=== PATIENT | male | born 1960 | race Caucasian/White ===

== ENCOUNTER → 2018-01-27 15:36 | Outpatient (CLI) | payer BC, SELFPAY ==
[2018-01-27 17:30] LABS: Absolute Lymphocyte Count 1.73 X10^3/ul (0.83-4.51); Absolute Neutrophil Count 3.8 X10^3/uL (2.0-7.7); Basophil# 0.06 X10^3/uL; Basophil% 0.9 % (0-1); Eosinophil# 0.14 X10^3/uL; Eosinophils% 2.1 % (0-5); Hematocrit 44.8 % (40-54); Hemoglobin 15.2 g/dl (13.0-16.5); Lymphocyte # 1.73 X10^3/ul (4.0); Mean Corp Hgb Conc 33.9 g/gl (32-36); Mean Corpuscular Hgb 32.5 pg (27.0-32.0); Mean Corpuscular Volume 95.7 fL (80-94); Mean Platelet Vol. 11.4 fl (6.2-12.0); Monocyte# 0.91 X10^3/uL; Monocyte% 13.7 % (0-10); Neutrophil # 3.81 X10^3/uL (2.7-7.7); Neutrophil % 57.1 % (47-70); Platelet Count 178 K/mm3 (150-450); RBC Distribution Width CV 13.1 % (11.6-14.6); RBC Distribution Width SD 45.6 fl (35.1-43.9); Red Blood Count 4.68 M/mm3 (4.6-6.2); White Blood Count 6.7 K/mm3 (4.4-11.0)
[2018-01-27 17:32] LABS: POSITIVE COUNT NO; POSITIVE DIFFERENTIAL NO; POSITIVE MORPHOLOGY NO
[2018-01-27 18:02] LABS: ALB/GLOB Ratio 1.3 RATIO (0.9-2.4); AST(SGOT) 18 U/L (15-37); Alanine Aminotransfer ALT/SGPT 29 U/L (16-61); Albumin, Serum 3.8 g/dL (3.2-5.0); Alkaline Phosphatase 78 U/L (45-117); Anion Gap 6 (5-15); BUN 14 mg/dL (7-18); BUN/Creat Ratio 19.2 RATIO (10-20); Calcium,Total 9.1 mg/dL (8.5-10.1); Chloride 108 mmol/L (98-107); Creatinine, Serum 0.73 mg/dL (0.70-1.30); EST Glomerular Filtration Rate 117 mL/min (>60); Est Glom Filt Rate - Afr Amer 142 mL/min (>60); Glucose 91 mg/dL (74-106); Potassium 4.1 mmol/L (3.5-5.1); Protein, Total 6.8 g/dL (6.4-8.2); Sodium Level 143 mmol/L (136-145)
== END ==
PROVIDERS: Family Provider Family Medicine; PCP Family Medicine; Visit Provider Family Medicine
DX: R13.10 Dysphagia, unspecified (principal)
CPT/HCPCS: 36415; 80053; 85025

== ENCOUNTER → 2018-02-05 16:49 | Outpatient (CLI) | payer BC, SELFPAY | PROVIDERS: Family Provider Family Medicine; PCP Family Medicine; Referring Provider Family Medicine; Visit Provider Family Medicine | DX: R19.7 Diarrhea, unspecified (principal) | CPT/HCPCS: 87493 ==

== ENCOUNTER 2018-02-06 09:55 | Day surgery (SDC) | payer BC, SELFPAY ==
[2018-02-06] VITALS (7 sets, daily range): BP systolic 96–130; BP diastolic 73–116; PULSE 62–77; RESP 16–18; TEMP 36.3–36.7; O2SAT 96–100; BMI 19.8
--- NOTE | 2018-02-06 | GASB_PTH ---
PATIENT: RONI ROYAL LOC: EN U#:[id number] AGE/SX: 57/M ROOM: RE02/06/[address]: Dr. Jose Escamilla MD : 1960 BED: DIS: 02/06/2018 SPEC #: [id number] RECD: 02/06/18 15:10 STATUS: JESSEE WENDY #: [id number] HEATHER: 02/06/18 00:[address]: Jose Escamilla DEPT: SURGICAL PATHOLOGY RECD BY: Russell Dubois ENTERED: 02/06/18 15:11 SP TYPE: Gastric Bx OTHR DR: Dr. Cristobal Diaz MD Tissues: A - Gastric mucous membrane B - Gastric mucous membrane C - Esophageal mucous membrane D - Rectum, NOS Procedures: Surgery Specimen Level IV HEADER OPERATION: Colonoscopy, EGD ([facility] [place]) PRE-OP DIAGNOSIS: Weight loss, nonintentional esophageal dysphagia; epigastric pain TISSUE SUBMITTED: A - Biopsy gastric antrum, H. pylori and path, B - Biopsy of gastric polyp, C - Distal esophageal, D - Biopsy polyp rectum MICROSCOPIC DIAGNOSIS A. Gastric antrum, biopsy: Chronic active gastritis. B. Gastric polyp, biopsy: Fundic gland polyp. C. Distal esophageal biopsy: Fragments of squamous epithelium with chronic inflammation. D. Polyp rectum, biopsy: Fragments of colonic mucosa with focal hyperplastic changes. SJ:michelle 02/09/18 COMMENT A. The results of immunohistochemistry for Helicobacter pylori will be reported separately ([id number]). MICROSCOPIC DESCRIPTION Slides are reviewed. GROSS DESCRIPTION A - Received in fixative is one container labeled with the patient's name and designated biopsy gastric antrum. The specimen consists of one irregular fragment of light de la garza soft tissue that measures 0.5 x 0.2 x 0.1 cm. The specimen is totally submitted in one cassette. B - Received in fixative is one container labeled with the patient's name and designated gastric polyp. The specimen consists of one irregular fragment of light de [place] garza soft tissue that measures 0.3 x 0.3 x 0.1 cm. The specimen is totally submitted in one cassette. C - Received in fixative is one container labeled with the patient's name and designated distal esophageal biopsy. The specimen consists of multiple irregular fragments of light de [place] garza soft tissue that in aggregate measure 1 x 0.2 x 0.1 cm. The specimen is totally submitted in one cassette. D - Received in fixative is one container labeled with the patient's name and designated biopsy polyp rectum. The specimen consists of multiple irregular fragments of light de [place] garza soft tissue that in aggregate measure 1.5 x 0.3 x 0.1 cm. The specimen is totally submitted in one cassette. / SJ:rg 02/06/18 TC:3 CPT: 00093 x4
--- NOTE | 2018-02-06 | IMM_PTH ---
PATIENT: RONI ROYAL LOC: EN U#:[id number] AGE/SX: 57/M ROOM: RE02/06/[address]: Dr. Jose Escamilla MD : 1960 BED: DIS: 02/06/2018 SPEC #: [id number] RECD: 02/06/18 15:26 STATUS: JESSEE RECierra #: [id number] HEATHER: 02/06/18 00:[address]: Jose Escamilla DEPT: IMMUNOHISTOCHEMISTRY RECD BY: Rosette Mueller ENTERED: 02/06/18 15:27 SP TYPE: IMMUNO OTHR DR: Dr. Cristobal Diaz MD Tissues: A - Stomach, NOS Procedures: H Pylori (initial) PHYSICIAN & INSTITUTION [place] [id number] SPECIMEN INFORMATION: Tissue Source: A - Gastric antrum biopsy Clinical Info: Weight loss, nonintentional; esophageal dysphagia; epigastric pain Specimen Number: [id number] CPT code: 63852 METHODOLOGY: Deparaffinized sections of prefer/formalin-fixed tissue or PAP/DQ stained slides are incubated with monoclonal/polyclonal antibodies/oligonucleotide probes. Localization is made via biotin free immunoperoxidase method. Appropriate controls are performed and reacted as expected. Results on target cell population are indicated in the following table: RESULTS: ANTIBODY / CLONE RESULT Block A H Pylori (polyclonal) negative These tests were developed and their performance characteristics determined by [facility]. They may not have been cleared or approved by the U.S. Food and Drug Administration. The FDA has determined that such clearance or approval is not necessary. INTERPRETATION: A. Gastric antrum, biopsy: Negative for Helicobacter pylori organisms. SJ:michelle 02/10/18
--- NOTE | 2018-02-06 11:48 | OP.ENDO_ITS ---
Patient Name: Riki Mayes Procedure Date: 02/06/2018 11:00 AM Date of : 1960 Age: 57 Procedure: Upper GI endoscopy Indications: Epigastric abdominal pain Providers: Jose Escamilla MD Referring MD: Jose Escamilla MD Medicines: See the Anesthesia note for documentation of the administered medications Complications: No immediate complications. Procedure: Pre-Anesthesia Assessment: - Prior to the procedure, a History and Physical was performed, and patient medications and allergies were reviewed. The patient's tolerance of previous anesthesia was also reviewed. The risks and benefits of the procedure and the sedation options and risks were discussed with the patient. All questions were answered, and informed consent was obtained. Prior Anticoagulants: The patient has taken no previous anticoagulant or antiplatelet agents. ASA Grade Assessment: II - A patient with mild systemic disease. After reviewing the risks and benefits, the patient was deemed in satisfactory condition to undergo the procedure. After obtaining informed consent, the endoscope was passed under direct vision. Throughout the procedure, the patient's blood pressure, pulse, and oxygen saturations were monitored continuously. The gastroscope was introduced through the mouth, and advanced to the second part of duodenum. The upper GI endoscopy was accomplished without difficulty. The patient tolerated the procedure well. Scope In: 11:12:25 AM Scope Out: 11:18:19 AM Total Procedure Duration Time 0 hours 5 minutes 54 seconds Findings: The examined esophagus was normal. Biopsies were taken with a cold forceps for histology of the distal esophagus at the EG junction Diffuse mildly erythematous mucosa without bleeding was found in the gastric antrum. Biopsies were taken with a cold forceps for histology. A single 7 mm sessile polyp with no stigmata of recent bleeding was found on the greater curvature of the stomach. The polyp was removed with a cold biopsy forceps. Resection and retrieval were complete. The examined duodenum was normal. Impression: - Normal esophagus. Biopsied. - Erythematous mucosa in the antrum. Biopsied. - A single gastric polyp. Resected and retrieved. - Normal examined duodenum. Recommendation: - Telephone my office for pathology results in 1 week. - Discharge patient to home. - Resume previous diet. - Use Prilosec (omeprazole) 20 mg PO daily. Findings do not correlate with the degree of his abdominal pain and weight loss - Continue present medications. Procedure Code(s): --- Professional --- 60609, Esophagogastroduodenoscopy, flexible, transoral; with biopsy, single or multiple Diagnosis Code(s): --- Professional --- K31.89, Other diseases of stomach and duodenum K31.7, Polyp of stomach and duodenum R10.13, Epigastric pain CPT copyright 2017 [employer]. All rights reserved. The codes documented in this report are preliminary and upon licensed insurance agent review may be revised to meet current compliance requirements. Jose Escamilla MD 02/06/2018 11:47:54 AM This report has been signed electronically. Number of Addenda: 0 Note Initiated On: 02/06/2018 11:00 AM
--- NOTE | 2018-02-06 11:53 | OP.ENDO_ITS ---
Patient Name: Riki Mayes Procedure Date: 02/06/2018 11:21 AM Date of : 1960 Age: 57 Procedure: Colonoscopy Indications: Periumbilical abdominal pain Providers: Jose Escamilla MD Referring MD: Jose Escamilla MD Medicines: See the Anesthesia note for documentation of the administered medications Patient Profile: Last Colonoscopy: none. The patient's first colonoscopy is today. Complications: No immediate complications. Procedure: Pre-Anesthesia Assessment: - Prior to the procedure, a History and Physical was performed, and patient medications and allergies were reviewed. The patient's tolerance of previous anesthesia was also reviewed. The risks and benefits of the procedure and the sedation options and risks were discussed with the patient. All questions were answered, and informed consent was obtained. Prior Anticoagulants: The patient has taken no previous anticoagulant or antiplatelet agents. ASA Grade Assessment: II - A patient with mild systemic disease. After reviewing the risks and benefits, the patient was deemed in satisfactory condition to undergo the procedure. After I obtained informed consent, the scope was passed under direct vision. Throughout the procedure, the patient's blood pressure, pulse, and oxygen saturations were monitored continuously. The Colonoscope was introduced through the anus and advanced to the cecum, identified by appendiceal orifice and ileocecal valve. The colonoscopy was performed without difficulty. The patient tolerated the procedure well. The quality of the bowel preparation was good. The ileocecal valve was photographed. Scope In: 11:23:11 AM Scope Withdrawal Time 0 hours 12 minutes 15 seconds Scope Out: 11:41:37 AM Total Procedure Duration Time 0 hours 18 minutes 26 seconds Findings: Hemorrhoids were found on perianal exam. A 5 mm polyp was found in the rectum. The polyp was sessile. The polyp was removed with a cold biopsy forceps. Resection and retrieval were complete. A 4 mm polyp was found in the rectum. The polyp was sessile. The polyp was removed with a cold biopsy forceps. Resection and retrieval were complete. Multiple diverticula were found in the sigmoid colon, descending colon and transverse colon. The exam was otherwise without abnormality. Impression: - Hemorrhoids found on perianal exam. - One 5 mm polyp in the rectum, removed with a cold biopsy forceps. Resected and retrieved. - One 4 mm polyp in the rectum, removed with a cold biopsy forceps. Resected and retrieved. - Mild diverticulosis in the sigmoid colon, in the descending colon and in the transverse colon. - The examination was otherwise normal. Recommendation: - Discharge patient to home. - Resume previous diet. - Continue present medications. - Repeat colonoscopy in 5 years for surveillance. - Telephone my office for pathology results in 1 week. Procedure Code(s): --- Professional --- 31452, Colonoscopy, flexible; with biopsy, single or multiple Diagnosis Code(s): --- Professional --- K64.9, Unspecified hemorrhoids K62.1, Rectal polyp R10.33, Periumbilical pain K57.30, Diverticulosis of large intestine without perforation or abscess without bleeding CPT copyright 2017 [employer]. All rights reserved. The codes documented in this report are preliminary and upon information coder review may be revised to meet current compliance requirements. Jose Escamilla MD 02/06/2018 11:53:01 AM This report has been signed electronically. Number of Addenda: 0 Note Initiated On: 02/06/2018 11:21 AM
== END 2018-02-06 10:35 | disposition home or self-care (01) ==
LOC: EN 09:56 → AC 09:57
PROVIDERS: Family Provider Family Medicine; PCP Family Medicine; Referring Provider Surgery; Visit Provider Surgery
PROC: 0DJD8ZZ Inspection of Lower Intestinal Tract, Via Natural or Artificial Opening Endoscopic (ICD-10-PCS; CPT 45378; principal; 2018-02-06 10:55)
DX: K29.50 Unspecified chronic gastritis without bleeding (principal); K31.7 Polyp of stomach and duodenum; K31.89 Other diseases of stomach and duodenum; K62.1 Rectal polyp; K57.30 Diverticulosis of large intestine without perforation or abscess without bleeding; K64.9 Unspecified hemorrhoids; N40.0 Benign prostatic hyperplasia without lower urinary tract symptoms; K42.9 Umbilical hernia without obstruction or gangrene; Z87.19 Personal history of other diseases of the digestive system; Z85.118 Personal history of other malignant neoplasm of bronchus and lung; Z92.21 Personal history of antineoplastic chemotherapy; Z79.899 Other long term (current) drug therapy; F17.200 Nicotine dependence, unspecified, uncomplicated
CPT/HCPCS: 43239; 45380; 88305; 88342; J7120

== ENCOUNTER → 2018-02-10 08:05 | Outpatient (CLI) | payer BC, SELFPAY ==
--- NOTE | 2018-02-10 08:07 | CT_ITS ---
STUDY: CT ABDOMEN AND PELVIS WITH CONTRAST REASON FOR EXAM: Male, 57 years old. Abdominal pain, weight loss, dysphagia, umbilical hernia. Pain around the hernia Patient premedicated for iodine allergy. RADIATION DOSAGE (If Supplied By Facility): CTDIvol = ( 9.51 ) mGy, DLP = ( 422.9 ) mGycm TECHNIQUE: Transaxial images were obtained from the dome of the diaphragm to the symphysis pubis with oral contrast. 100 ml of Isovue 300 contrast was administered. Sagittal and coronal images were reconstructed. Individualized dose optimization techniques were used for this CT. COMPARISON: None. FINDINGS: The visualized lung bases are unremarkable. The visualized portions of the heart are within normal limits. Normal liver. Normal gallbladder and extrahepatic biliary system. Normal spleen. Normal pancreas. Normal bilateral adrenal glands. Normal right kidney. Normal left kidney. The stomach is contracted. There is circumferential mild submucosal edema/wall thickening of the gastric antrum, compatible with antral gastritis. Normal small intestine. There is proximally in the ascending colon a 3.3 cm long somewhat apple core like circumferential wall thickening with luminal narrowing demonstrated (coronal image 60/107), suspicious of malignancy until proven otherwise. There is moderate to large amount of retained fecal debris is seen in the entire colon, including the rectosigmoid. There is non-visualization of the appendix. There is moderate atherosclerotic calcification of the abdominal aorta and iliac arteries with elongation and tortuosity, but without a demonstrated aneurysm. Normal inferior vena cava. There is mesenteric diffuse more peripherally edema-like fullness noted mostly in the upper abdomen from uncertain etiology. There is a 3.5 mm diffuse mild wall thickening of the bladder. There is mild enlargement of the prostate gland. There is a 9 mm ovoid shape metallic foreign body seen along the left lateral pelvic wall adjacent to the bladder. There is a small umbilical hernia containing fat. A L5 vertebral bilateral pedicle nonunion stress fracture/spondylolysis with mild anterolisthesis demonstrated. Multilevel lumbar mild endplate changes are seen. CT/Abdomen/Pelvis WITH Contrast IMPRESSION: 1. Circumferential mild submucosal edema/wall thickening of the gastric antrum, compatible with antral gastritis. 2. Involving proximal ascending colon a 3.3 cm long somewhat apple core like abnormality seen with luminal narrowing, suspicious of malignancy until proven otherwise. Colonoscopy is recommended at clinically appropriate time. 3. Moderately increased colonic fecal debris. 4. Mildly enlarged prostrate gland with mild diffuse wall thickening of the bladder. 5. L5 bilateral spondylolysis with mild grade 1 anterolisthesis. Electronically Signed: Tavo Boswell MD at 14:33 EDT Tel , Service support ,
--- NOTE | 2018-02-10 08:15 | RAD_ITS ---
STUDY: X-RAY - ESOPHAGUS (BARIUM SWALLOW) WITH FLUOROSCOPY REASON FOR EXAM: Male, 57 years old. Dysphagia for solids. TECHNIQUE: 26 view(s) of the esophagus were obtained following swallowing of barium. FLUOROSCOPY TIME (if supplied): (0:49) minutes/seconds COMPARISON: None. FINDINGS: There is no demonstrated esophageal foreign body. There is no demonstrated stricture or mucosal abnormality. Normal gastroesophageal junction, without a demonstrated hiatal hernia. The patient ingested a 12 mm tablet of barium. The tablet is trapped at the gastroesophageal junction. Normal visualized aortic arch and descending thoracic aorta. Normal visualized pulmonary parenchyma. Surgical clips are seen in the left hilar region. RAD/Esophagus Only IMPRESSION: The patient swallowed a 12 mm tablet of barium. The tablet is trapped at the gastroesophageal junction. Electronically Signed: Syed Gama MD at 10:57 EDT Tel [phone], Service support ,
== END ==
PROVIDERS: Family Provider Family Medicine; PCP Family Medicine; Referring Provider Family Medicine; Visit Provider Family Medicine
DX: R10.9 Unspecified abdominal pain (principal); R13.10 Dysphagia, unspecified; R63.4 Abnormal weight loss
CPT/HCPCS: 74177; 74220; Q9967; A4216

== ENCOUNTER 2018-03-05 10:18 | Day surgery (SDC) | payer BC, SELFPAY ==
[2018-03-05 10:36] VITALS: BP 107/68; PULSE 77; TEMP 36.8; O2SAT 97
[2018-03-05 10:45] LABS: Hematocrit 51.8 % (40-54); Hemoglobin 17.5 g/dl (13.0-16.5); Mean Corp Hgb Conc 33.8 g/gl (32-36); Mean Corpuscular Hgb 32.7 pg (27.0-32.0); Mean Corpuscular Volume 96.8 fL (80-94); Mean Platelet Vol. 10.6 fl (6.2-12.0); Platelet Count 200 K/mm3 (150-450); RBC Distribution Width CV 13.5 % (11.6-14.6); RBC Distribution Width SD 47.8 fl (35.1-43.9); Red Blood Count 5.35 M/mm3 (4.6-6.2); White Blood Count 6.1 K/mm3 (4.4-11.0)
[2018-03-05 10:46] LABS: Scan Indicated on CBC? Y/N NO
[2018-03-05 10:50] LABS: International Normalized Ratio 0.9; Prothrombin Time (Protime)PT. 12.4 SECONDS (11.7-14.9)
[2018-03-05 10:51] LABS: Partial Thromboplast Time 27.1 Seconds (24.1-36.2)
[2018-03-05 11:00] LABS: Anion Gap 4 (5-15); BUN 14 mg/dL (7-18); BUN/Creat Ratio 16.9 RATIO (10-20); Chloride 106 mmol/L (98-107); Creatinine, Serum 0.83 mg/dL (0.70-1.30); EST Glomerular Filtration Rate 101 mL/min (>60); Est Glom Filt Rate - Afr Amer 122 mL/min (>60); Glucose 101 mg/dL (74-106); Potassium 4.5 mmol/L (3.5-5.1); Sodium Level 142 mmol/L (136-145)
[2018-03-05 11:01] LABS: AST(SGOT) 25 U/L (15-37); Alanine Aminotransfer ALT/SGPT 48 U/L (16-61); Albumin, Serum 3.8 g/dL (3.2-5.0); Alkaline Phosphatase 73 U/L (45-117); Bilirubin, Direct 0.18 mg/dL (0.00-0.30); Globulin 3.5 g/dL (2.2-4.2); Protein, Total 7.3 g/dL (6.4-8.2)
--- NOTE | 2018-03-05 11:14 | EKG12_ITS ---
Test Reason : PREOP Blood Pressure : / mmHG Vent. Rate : 074 BPM Atrial Rate : 074 BPM P-R Int : 138 ms QRS Dur : 080 ms QT Int : 382 ms P-R-T Axes : 087 071 065 degrees QTc Int : 424 ms Normal sinus rhythm Normal ECG No previous ECGs available Confirmed by FRANK BOSTON, NETTIE ([id number]), deputy editor in chief YULY BERRY ([id number]) on 03/09/2018 2:36:44 PM Referred By: Jose Escamilla Confirmed By:NETTIE MARIE MD
[2018-03-05] MEDS: Cefazolin 2 GM in 0.9% Normal Saline 100 ML IV (11:50)
--- NOTE | 2018-03-05 11:55 | HERN_PTH ---
PATIENT: RONI ROYAL LOC: [facility] [place] U#:[id number] AGE/SX: 57/M ROOM: RE03/05/[address]: Dr. Jose Escamilla MD : 1960 BED: DIS: 03/05/2018 SPEC #: [id number] RECD: 03/05/18 12:33 STATUS: JESSEE WENDY #: [id number] HEATHER: 03/05/18 11:[address]: Jose Escamilla DEPT: SURGICAL PATHOLOGY RECD BY: Lamont Newsome ENTERED: 03/05/18 15:36 SP TYPE: Hernia OTHR DR: Dr. Cristobal Diaz MD Tissues: HERNIA Procedures: Surgery Specimen Level II HEADER OPERATION: Hernia, umbilical repair with mesh PRE-OP DIAGNOSIS: Umbilical hernia with our obstruction or gangrene TISSUE SUBMITTED: Umbilical hernia sac and contents MICROSCOPIC DIAGNOSIS Soft tissue of umbilical region, excision: Fibrofatty tissue consistent with hernia sac and contents. AM:sp 03/06/18 MICROSCOPIC DESCRIPTION Slides are reviewed. GROSS DESCRIPTION Received in fixative is one container labeled with the patient's name and designated umbilical hernia sac. The specimen consists of an irregular fragment of pink- yellow fibrofatty tissue measuring 2.2 x 1.6 x 0.5 cm. The specimen is bisected and totally submitted in 1 cassette. AM:reddy 03/05/18 TC: 5 CPT: 56290
--- NOTE | 2018-03-05 11:59 | DCINST_ITS ---
Discharge Diet: Light diet - advance as tolerated - if you have questions about your diet instructions, please talk to you doctor. Discharge Activity: May Not Drive - for 1 week or while taking narcotic pain medicine. May shower in (days): 1 Lifting Restrictions: 10 pounds Call your doctor if your incision/area has: Continuous Slow Oozing, Sudden Increased Bleeding, Increased Pain/ Swelling, Increased Redness, Foul Smelling Discharge Call your doctor if you observe: Fever of 101 or Higher Suture Line Care: Avoid Pulling/Pushing, Avoid Pinching/Bending Additional Dressing/Incision Instructions:: Change or remove dressing in 4 days. Leave steri-strips in place for 1 week. Allergies/Adverse Reactions: Allergies No Known Allergies Allergy (Verified 03/03/18 16:31) Medications to take at Discharge ascorbic acid (vitamin C) 500 mg capsule 1,000 mg PO DAILY cap 02/03/18 tamsulosin 0.4 mg capsule 0.4 mg PO DAILY 02/03/18 Hydrocodone Bitart/Apap 5-325 [[place] 5MG-325MG] 1 tablet PO Q6H PRN PRN 2 Days #6 tablet 03/05/18 The following prescriptions were given: Hydrocodone Bitart/Apap 5-325 [[place] 5MG-325MG] 1 tablet PO Q6H PRN PRN 2 Days #6 tablet PRN Reason: Pain Orders to be completed after discharge: 12 Lead EKG [[facility]] Time Frame: 03/05/18, Location: None Selected Primary Care Physician: Cristobal Diaz MD [Primary Care Provider] - Test Results: Test results from this visit will be discussed in further detail at your follow- up appointment, if applicable. Please Follow Up With: Jose Escamilla MD - [phone] When: Call to make an appointment to be seen in about 10 days.
[2018-03-05] MEDS: Bupivacaine Mpf 0.5% 30 ML VIAL (12:27)
--- NOTE | 2018-03-05 12:29 | PCM.OPRPT ---
Problem List (1) Umbilical hernia without obstruction or gangrene Status: Acute Report of Operation Date of Procedure: 03/05/18 Pre-Operative Diagnosis: Symptomatic umbilical hernia Post-Operative Diagnosis: Same Surgery/Procedure Performed:: Umbilical herniorrhaphy with 6.4 cm ventral X mesh. Ventral X ST reference #[id number]. Lot number [id number]. Expiry date 11/16/2019 Description of Surgical Findings:: Timeout and informed consent was obtained. 57-year-old gent was taken the operating. He was placed upon the table. He underwent general endotracheal intubation anesthesia. Ancef 2 g given intravenously preoperatively. The abdomen sterilely prepped and draped. A curvilinear incision made the inferior portion of the umbilicus. Sharp dissection was performed. The hernia sac was dissected free there was preperitoneal fatty tissue within. Using electrocautery I transected that. Hemostasis nicely intact. I placed a 6.4 similar ventral X and that nicely unfurled. I secured the tails with interrupted 0 Nurolon. The fascia was closed with the same. Skin edges proximate up with 4 Monocryl subdermal stitches. Dermabond was applied followed by Telfa and OpSite dressing. Sponge and instrument and needle counts were reported the surgeon to be correct. Blood loss was minimal. The taylor-incisional areas anesthetized with 30 cc of 0.5% Marcaine. Specimens include hernia sac and contents. Drains none. Blood loss minimal. Jose Escamilla M.D., F.A.C.S. Type of Anesthesia:: General Anesthesiologist: Terell Gonzalez
--- NOTE | 2018-03-05 12:32 | OP.PCM_ITS ---
Problem List (1) Umbilical hernia without obstruction or gangrene Status: Acute Report of Operation Date of Procedure: 03/05/18 Pre-Operative Diagnosis: Symptomatic umbilical hernia Post-Operative Diagnosis: Same Surgery/Procedure Performed:: Umbilical herniorrhaphy with 6.4 cm ventral X mesh. Ventral X ST reference #[id number]. Lot number [id number]. Expiry date 11/16/2019 Description of Surgical Findings:: Timeout and informed consent was obtained. 57-year-old gent was taken the operating. He was placed upon the table. He underwent general endotracheal intubation anesthesia. Ancef 2 g given intravenously preoperatively. The abdomen sterilely prepped and draped. A curvilinear incision made the inferior portion of the umbilicus. Sharp dissection was performed. The hernia sac was dissected free there was preperitoneal fatty tissue within. Using electrocautery I transected that. Hemostasis nicely intact. I placed a 6.4 similar ventral X and that nicely unfurled. I secured the tails with interrupted 0 Nurolon. The fascia was closed with the same. Skin edges proximate up with 4 Monocryl subdermal stitches. Dermabond was applied followed by Telfa and OpSite dressing. Sponge and instrument and needle counts were reported the surgeon to be correct. Blood loss was minimal. The taylor- incisional areas anesthetized with 30 cc of 0.5% Marcaine. Specimens include hernia sac and contents. Drains none. Blood loss minimal. Jose Escamilla M.D., F.A.C.S. Type of Anesthesia:: General Anesthesiologist: Terell Gonzalez
[2018-03-05 12:46] VITALS: BP 107/68; BP 124/84; PULSE 71; RESP 16; TEMP 36.3; O2SAT 98
[2018-03-05 13:00] VITALS: BP 107/68; BP 116/80; PULSE 71; RESP 18; O2SAT 94
[2018-03-05 13:16] VITALS: BP 107/68; BP 114/77; PULSE 64; RESP 18; TEMP 36.7; O2SAT 93
[2018-03-05 14:07] VITALS: BP 107/68; BP 112/67; PULSE 62; RESP 16; TEMP 37.1; O2SAT 93
[2018-03-05] MEDS: HYDROcodone Bitartrate/Apap 5/325 Tablet PO (14:10)
[2018-03-05 14:29] VITALS: BP 107/68
== END 2018-03-05 14:30 | disposition home or self-care (01) ==
LOC: SDC 10:19 → AC 10:20
PROVIDERS: Anesthesiology; Family Provider Family Medicine; PCP Family Medicine; Referring Provider Surgery; Visit Provider Surgery
PROC: (CPT 49585; principal; 2018-03-05 11:40)
DX: K42.9 Umbilical hernia without obstruction or gangrene (principal); Z79.899 Other long term (current) drug therapy; N40.0 Benign prostatic hyperplasia without lower urinary tract symptoms; Z85.118 Personal history of other malignant neoplasm of bronchus and lung; F17.200 Nicotine dependence, unspecified, uncomplicated; R13.10 Dysphagia, unspecified; J44.9 Chronic obstructive pulmonary disease, unspecified
CPT/HCPCS: 00750; 49585; 80048; 80076; 85027; 85610; 85730; 88302; 93005; C1781; J7120; J0330

== ENCOUNTER → 2018-04-17 16:53 | Outpatient (CLI) | payer BC, SELFPAY ==
--- NOTE | 2018-04-17 16:55 | RAD_ITS ---
STUDY: X-RAY CHEST REASON FOR EXAM: Male, 57 years old. Cough. Chest tightness. Shortness of breath and congestion for several days. TECHNIQUE: PA and lateral views of the chest. COMPARISON: July 08, 2016. FINDINGS: The lungs are hyperexpanded. There is diffuse peribronchial cuffing unchanged from the prior study. There is no demonstrated pleural abnormality. Normal size heart. Normal mediastinum and kimber. Normal visualized pulmonary arteries. Normal visualized aortic arch and descending thoracic aorta. Normal visualized thoracic spine. Normal visualized ribs, clavicles, and shoulders. There is no demonstrated abnormality of the visualized soft tissue structures of the upper abdomen. RAD/Chest PA and Lateral IMPRESSION: Bronchitis versus reactive airway disease. There is no major interval change. Electronically Signed: Naun Francisco DO at 17:56 EST Tel [phone], Service support ,
[2018-04-17 17:58] LABS: Anion Gap 8 (5-15); BUN 14 mg/dL (7-18); BUN/Creat Ratio 15.7 RATIO (10-20); Calcium,Total 9.4 mg/dL (8.5-10.1); Chloride 102 mmol/L (98-107); Creatinine, Serum 0.89 mg/dL (0.70-1.30); EST Glomerular Filtration Rate 93 mL/min (>60); Est Glom Filt Rate - Afr Amer 112 mL/min (>60); Glucose 100 mg/dL (74-106); Potassium 4.1 mmol/L (3.5-5.1); Sodium Level 141 mmol/L (136-145)
[2018-04-17 18:04] LABS: Absolute Lymphocyte Count 1.56 X10^3/ul (0.83-4.51); Basophil# 0.03 X10^3/uL; Basophil% 0.2 % (0-1); Eosinophil# 0.09 X10^3/uL; Eosinophils% 0.6 % (0-5); Hematocrit 46.7 % (40-54); Lymphocyte # 1.56 X10^3/ul (4.0); Lymphocyte % 10.3 % (19-41); Mean Corp Hgb Conc 34.3 g/gl (32-36); Mean Corpuscular Hgb 32.9 pg (27.0-32.0); Mean Corpuscular Volume 95.9 fL (80-94); Mean Platelet Vol. 10.9 fl (6.2-12.0); Monocyte# 1.44 X10^3/uL; Monocyte% 9.5 % (0-10); Neutrophil # 11.95 X10^3/uL (2.7-7.7); Neutrophil % 79.1 % (47-70); Platelet Count 178 K/mm3 (150-450); RBC Distribution Width CV 13.6 % (11.6-14.6); RBC Distribution Width SD 47.1 fl (35.1-43.9); Red Blood Count 4.87 M/mm3 (4.6-6.2); White Blood Count 15.1 K/mm3 (4.4-11.0)
[2018-04-17 18:16] LABS: POSITIVE COUNT NO; POSITIVE DIFFERENTIAL NO; POSITIVE MORPHOLOGY NO
== END ==
PROVIDERS: Family Provider Family Medicine; PCP Family Medicine; Referring Provider Family Medicine; Visit Provider Family Medicine
DX: J44.9 Chronic obstructive pulmonary disease, unspecified (principal)
CPT/HCPCS: 36415; 71046; 80048; 85025

== ENCOUNTER → 2018-04-28 08:03 | Outpatient (CLI) | payer BC, SELFPAY ==
[2018-04-27 10:48] VITALS: BMI 21.7
--- NOTE | 2018-04-29 07:17 | PFTCOMP ---
COMPLETE PULMONARY FUNCTION TEST INTERPRETATION Brief HPI: Patient is a 57 year old female, currently under the care of Dr. Rhoades, who presents to [facility] for complete pulmonary function tests secondary to diagnosis of COPD. Respiratory therapist reports good effort and reproducible results. Interpretation: Forced expiration spirometry shows a very severe large airways obstructive ventilatory defect with an FEV1 of 45% predicted. There is a significant bronchodilator response in FVC and FEV1 by strict ATS criteria. Spirograms are of good quality and plateau slowly, indicating slowly emptying areas of the lungs. The respiratory flow volume loop shows decreased expiratory flow rates at all lung volumes consistent with airway obstruction. Lung volumes by body plethysmography show an elevated total lung capacity at 7.22 L, 126% predicted. FRC and RV are elevated out of proportion. Lung volume measurements are consistent with hyperinflation and air-trapping. Diffusion capacity by carbon monoxide is normal at 86% predicted. The airway resistance is elevated. No previous pulmonary function tests were available for review. Impression: Partially reversible very severe large airways obstructive ventilatory defect in a pattern consistent with asthma/COPD overlap syndrome.
== END ==
PROVIDERS: Family Provider Family Medicine; PCP Family Medicine; Referring Provider Internal Medicine Critical Care Medicine; Visit Provider Internal Medicine Critical Care Medicine
DX: J44.9 Chronic obstructive pulmonary disease, unspecified (principal)
CPT/HCPCS: 94060; 94726; 94729

== ENCOUNTER → 2018-04-30 08:30 | Outpatient (CLI) | payer BC, SELFPAY ==
[2018-04-27 10:48] VITALS: BMI 21.7
[2018-04-30 09:00] VITALS: PULSE 84; PULSE 87; PULSE 88; PULSE 91; PULSE 93; PULSE 94; PULSE 95; PULSE 96; O2SAT 92; O2SAT 93; O2SAT 96
--- NOTE | 2018-04-30 14:09 | PCM.PSN.6M ---
PSN 6 Minute Walk Test - 6 Minute Walk Test 6 Minute Walk Test: 6 Minute Walk Test PSN:6-Minute Walk Test Start: 04/30/18 08:59 Freq: Status: Active Protocol: RESP.6MINW Document 04/30/18 09:00 Ralf (Rec: 04/30/18 09:02 [facility] [id number]) 6 Minute Walk Test Date Performed 04/30/18 Time Performed 08:38 Height 5 ft 6 in Weight: 58.967 kg Weight in Pounds 130.[address]: Emmett Rhoades Assistive device used: None Pre-test Oxygen Delivery Method Room Air Pulse Ox (%) 96 Pulse Rate (60-100 beats/min) 84 Dyspnea Av Scale (0-10) 2 Exertion Av Scale (6-20) 11 1st minute Oxygen Delivery Method Room Air Pulse Ox (%) 93 Pulse Rate (60-100 beats/min) 88 2nd minute Oxygen Delivery Method Room Air Pulse Ox (%) 93 Pulse Rate (60-100 beats/min) 94 3rd minute Oxygen Delivery Method Room Air Pulse Ox (%) 92 Pulse Rate (60-100 beats/min) 91 4th minute Oxygen Delivery Method Room Air Pulse Ox (%) 92 Pulse Rate (60-100 beats/min) 95 5th minute Oxygen Delivery Method Room Air Pulse Ox (%) 93 Pulse Rate (60-100 beats/min) 93 6th minute Oxygen Delivery Method Room Air Pulse Ox (%) 92 Pulse Rate (60-100 beats/min) 96 Post-test Oxygen Delivery Method Room Air Pulse Ox (%) 96 Pulse Rate (60-100 beats/min) 87 Dyspnea Av Scale (0-10) 3 Exertion Av Scale (6-20) 13 Full Laps Walked 20 Partial Lap, Number of Tiles Walked 4 Total Distance Walked (ft) 1184 - Interpretation Interpretation: The patient was able to ambulate 1184 feet over the course of 6 minutes on room air with no assistive devices or breaks. The patient did have significant desaturation from a baseline of 96% to as low as 92% with ambulation. These findings are consistent with a respiratory limitation exercise tolerance. - Recommendations Recommendations: No supplemental oxygen is indicated at this time.
== END ==
PROVIDERS: Family Provider Family Medicine; PCP Family Medicine; Referring Provider Internal Medicine Critical Care Medicine; Visit Provider Internal Medicine Critical Care Medicine
DX: J44.9 Chronic obstructive pulmonary disease, unspecified (principal)
CPT/HCPCS: 94618

== ENCOUNTER → 2018-06-23 15:53 | Outpatient (CLI) | payer BC, SELFPAY ==
[2018-06-23 15:06] VITALS: BMI 21.7
[2018-06-23 16:38] LABS: Absolute Lymphocyte Count 1.86 X10^3/ul (0.83-4.51); Absolute Neutrophil Count 4.6 X10^3/uL (2.0-7.7); Basophil# 0.03 X10^3/uL; Basophil% 0.4 % (0-1); Eosinophil# 0.19 X10^3/uL; Eosinophils% 2.6 % (0-5); Hematocrit 47.4 % (40-54); Hemoglobin 15.3 g/dl (13.0-16.5); Lymphocyte # 1.86 X10^3/ul (4.0); Lymphocyte % 25.3 % (19-41); Mean Corp Hgb Conc 32.3 g/gl (32-36); Mean Corpuscular Hgb 31.6 pg (27.0-32.0); Mean Corpuscular Volume 97.9 fL (80-94); Mean Platelet Vol. 10.9 fl (6.2-12.0); Monocyte# 0.66 X10^3/uL; Neutrophil # 4.61 X10^3/uL (2.7-7.7); Neutrophil % 62.6 % (47-70); Platelet Count 174 K/mm3 (150-450); RBC Distribution Width CV 13.6 % (11.6-14.6); RBC Distribution Width SD 48.3 fl (35.1-43.9); Red Blood Count 4.84 M/mm3 (4.6-6.2); White Blood Count 7.4 K/mm3 (4.4-11.0)
[2018-06-23 16:55] LABS: POSITIVE COUNT NO; POSITIVE DIFFERENTIAL NO; POSITIVE MORPHOLOGY NO
[2018-06-27 20:06] LABS: Aspirgillus flavus Negative (Neg:<1:1); Aspirgillus fumigatus Negative (Neg:<1:1); Aspirgillus niger Negative (Neg:<1:1)
[2018-06-28 03:03] LABS: Alternaria alternata <0.10 kU/L (Class 0); Bermuda Grass <0.10 kU/L (Class 0); Bluegrass, Kentucky <0.10 kU/L (Class 0); Cat Hair/Dander, Standard <0.10 kU/L (Class 0); D farinae Mite <0.10 kU/L (Class 0); D pteronyssinus <0.10 kU/L (Class 0); Dog Epithelia <0.10 kU/L (Class 0); Elm, American White <0.10 kU/L (Class 0); Oak, White <0.10 kU/L (Class 0); Plantain, English <0.10 kU/L (Class 0); Ragweed, Short/Common <0.10 kU/L (Class 0)
[2018-06-29 10:59] LABS: Immunoglobulin E 27 IU/mL (6-495)
[2018-06-29 11:00] LABS: Mouse Urine <0.10 kU/L (Class 0)
== END ==
PROVIDERS: Family Provider Family Medicine; PCP Family Medicine; Referring Provider Nurse Practitioner Acute Care; Visit Provider Nurse Practitioner Acute Care
DX: J44.9 Chronic obstructive pulmonary disease, unspecified (principal)
CPT/HCPCS: 36415; 82785; 85025; 86003; 86606

== ENCOUNTER → 2018-08-26 | Outpatient (CLI) | payer BC, SELFPAY ==
[2018-06-23 15:06] VITALS: BMI 21.7
[2018-08-26 18:26] LABS: Absolute Lymphocyte Count 1.89 X10^3/ul (0.83-4.51); Absolute Neutrophil Count 3.9 X10^3/uL (2.0-7.7); Basophil# 0.05 X10^3/uL; Basophil% 0.7 % (0-1); Eosinophil# 0.33 X10^3/uL; Eosinophils% 4.8 % (0-5); Hemoglobin 15.1 g/dl (13.0-16.5); Lymphocyte # 1.89 X10^3/ul (4.0); Lymphocyte % 27.4 % (19-41); Mean Corp Hgb Conc 33.6 g/gl (32-36); Mean Corpuscular Hgb 31.4 pg (27.0-32.0); Mean Corpuscular Volume 93.6 fL (80-94); Mean Platelet Vol. 11.4 fl (6.2-12.0); Monocyte# 0.76 X10^3/uL; Neutrophil # 3.86 X10^3/uL (2.7-7.7); Platelet Count 169 K/mm3 (150-450); RBC Distribution Width CV 13.8 % (11.6-14.6); RBC Distribution Width SD 45.7 fl (35.1-43.9); Red Blood Count 4.81 M/mm3 (4.6-6.2); White Blood Count 6.9 K/mm3 (4.4-11.0)
[2018-08-26 18:34] LABS: POSITIVE COUNT NO; POSITIVE DIFFERENTIAL NO; POSITIVE MORPHOLOGY NO
[2018-08-28 11:32] LABS: Hepatitis A AB, Total Negative (Negative)
== END | disposition home or self-care (01) ==
LOC: MFPLAB 16:50
PROVIDERS: Family Provider Family Medicine; PCP Family Medicine; Referring Provider Family Medicine; Visit Provider Family Medicine
DX: R19.7 Diarrhea, unspecified (principal)
CPT/HCPCS: 36415; 85025; 86708

== ENCOUNTER → 2018-08-27 | Outpatient (CLI) | payer BC, SELFPAY ==
[2018-06-23 15:06] VITALS: BMI 21.7
== END | disposition home or self-care (01) ==
LOC: MTLAB 12:45
PROVIDERS: Family Provider Family Medicine; PCP Family Medicine; Referring Provider Family Medicine; Visit Provider Family Medicine
DX: R19.7 Diarrhea, unspecified (principal)
CPT/HCPCS: 87177; 87209; 87493; 87506

== ENCOUNTER → 2019-08-04 11:19 | Outpatient (CLI) | payer BC, SELFPAY ==
[2019-03-15 08:12] VITALS: BMI 20.9
[2019-08-04 12:46] LABS: Absolute Lymphocyte Count 1.64 X10^3/uL (0.83-4.51); Absolute Neutrophil Count 3.8 X10^3/uL (2.0-7.7); Basophil# 0.05 X10^3/uL; Basophil% 0.8 % (0-1); Eosinophil# 0.19 X10^3/uL; Hematocrit 48.2 % (40-54); Lymphocyte # 1.64 X10^3/ul (4.0); Lymphocyte % 25.7 % (19-41); Mean Corp Hgb Conc 33.2 g/dL (32-36); Mean Corpuscular Hgb 31.5 pg (27.0-32.0); Mean Corpuscular Volume 94.9 fL (80-94); Mean Platelet Vol. 11.1 fl (6.2-12.0); Monocyte# 0.68 X10^3/uL; Monocyte% 10.7 % (0-10); NRBC Flagged by Analyzer 0 % (0-5); Neutrophil % 59.5 % (47-70); Platelet Count 176 K/mm3 (150-450); RBC Distribution Width CV 12.9 % (11.6-14.6); RBC Distribution Width SD 45.7 fl (35.1-43.9); Red Blood Count 5.08 M/mm3 (4.6-6.2); White Blood Count 6.4 K/mm3 (4.4-11.0)
[2019-08-04 13:13] LABS: AST(SGOT) 17 U/L (15-37); Alanine Aminotransfer ALT/SGPT 18 U/L (16-61); Albumin, Serum 3.7 g/dL (3.2-5.0); Alkaline Phosphatase 84 U/L (45-117); BUN 9 mg/dL (7-18); Calcium,Total 9.2 mg/dL (8.5-10.1); Chloride 108 mmol/L (98-107); Creatinine, Serum 0.71 mg/dL (0.70-1.30); EST Glomerular Filtration Rate 121 mL/min (>60); Est Glom Filt Rate - Afr Amer 146 mL/min (>60); Potassium 4.4 mmol/L (3.5-5.1); Sodium Level 141 mmol/L (136-145)
== END ==
LOC: LAB.FUTURE 11:25 → LAB 08-06 06:59
PROVIDERS: PCP Family Medicine
DX: Z85.118 Personal history of other malignant neoplasm of bronchus and lung (principal)
CPT/HCPCS: 36415; 82040; 82247; 82310; 82374; 82435; 82565; 84075; 84132; 84295; 84450; 84460; 84520; 85025

== ENCOUNTER 2019-11-26 08:54 | Outpatient (RCR) | payer BC, SELFPAY ==
[2019-09-09 07:45] VITALS: BMI 21.4
--- NOTE | 2019-11-30 08:57 | HP.OTFCE_ITS ---
Floor (Occasional 1-33% of Day): 70# Floor (Frequent 34-66% of Day): 35# Floor (Constant 67-100% of Day): 16# Floor PDL: Medium Knee (Occasional 1-33% of Day): 70# Knee (Frequent 34-66% of Day): 35# Knee (Constant 67-100% of Day): 16# Knee PDL: Medium Waist (Occasional 1-33% of Day): 70# Waist (Frequent 34-66% of Day): 35# Waist (Constant 67-100% of Day): 16# Waist PDL: Medium Shoulder (Occasional 1-33% of Day): 45# Shoulder (Frequent 34-66% of Day): 22# Shoulder (Constant 67-100% of Day): 9# Shoulder PDL: Light-Medium Overhead (Occasional 1-33% of Day): 25# Overhead (Frequent 34-66% of Day): 12# Overhead (Constant 67-100% of Day): 5# Overhead PDL: Light Comments: Pt demo good lifting mechanics with lifts Bending: Frequent Ability (34-66% of day) Squatting: Frequent Ability (34-66% of day) Kneeling: Frequent Ability (34-66% of day) Comments: with external support Reaching out: Frequent Ability (34-66% of day) Reaching up: Frequent Ability (34-66% of day) Sitting: Frequent Ability (34-66% of day) Walking: Frequent Ability (34-66% of day) Standing: Frequent Ability (34-66% of day) Duration Sedentary Sedentary Light Light Light Medium Medium Medium Heavy Very Heavy Heavy Occasional (0-33% of day) Frequent (34-66% of day) Constant (67-100% of day) 10 # Negligible Negligible 15 # 8 # Negligible 20 # 10# Negli. 35 # 18 # 7 # 50 # 25 # 10 # 75 # 100 # >100 # 38 # 50 # >50 # 15 # 20 # >20 # Height: 1.68 m Weight:: 58.967 kg Hand Dominance: Right Medical History Including Restrictions: This 59-year-old male was seen for FCE. States he was in good health 20 years ago until he suffered a right shoulder dislocated while work at [employer]. Pt states he did not go to ER or create a WC claim. Pt states he put his shoulder back himself. pt states he continued to perform his job duties. Pt states he dislocated his left shoulder while working at [employer] about 15 years ago. pt states he did not go to ER or create a W/C claim. Pt states he put his left shoulder back in place too. pt denies going to physical therapy to strengthen either shoulder. Currently both shoulders cause him pain. Pt states 10 years ago he was dx with lung cancer where they removed half of his left lung. pt states he went through 8-12 months of chemo and 15-20 radiation treatments. pt is currently in remission, pt does not need oxygen. pt states due to his shoulder and arm pain by the end of his workday pt reports pain is 3-4/10 following. Pt reports he has not had x-rays or seen security assurance specialist or physical therapist for his shoulders. Pt states he does not exercise on a regular basis. Diagnoses: Malignant Carcinoid tumor lung cancer Symptoms: bilateral shoulder pain. bilalteral arm pain. bilateral arm weakness. bilateral feet pain Pain: pt reports pain is currently 2/10. pt states he does not take any pain medication or any anti-inflamitory. pt states he does not take over the counter medication either. resting heart rate 76 Work History: Pt states he has worked for [employer] for 20 years. 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 Pt states this requires him to lift 50#, standing for long periods of time, in confine space, hot environment. pt states he does work 8 hours shift for 40 hours. pt states at times he does work overtime. Behavioral: Pt was cooperative throughout the assessment. ADLS: Pt states he lives with sig. other in a two-story home. pt states there are 6 entry steps with one handrail. pt states half bath on 1st, but master bed and bathroom on on 2nd floor. States he has 18 steps without rail and has no difficulty with steps. Pt states bathroom is tub shower combination. he reports he is ind. with bathing/dressing. Pt states he is ind. with cleaning/cooking and home mtg. pt drives ind. pt states he is ind. With yard work. ROM: pt demo ROM all WNL Strength: MMT UB 4+/5. LB hip 4/5. knee flex/ext 5/5 Right Waterworks Chief Engineer Strength Average: 45.00 Right Waterworks Chief Engineer Strength Percentile: <.9% Left Waterworks Chief Engineer Strength Average: 45.00 Left Waterworks Chief Engineer Strength Percentile: <.9% Right Lateral Pinch Average: 16.00 Right Lateral Pinch Percentile: 25# Left Lateral Pinch Average: 12.00 Left Lateral Pinch Percentile: 10% Right Tripod Pinch Average: 14.33 Right Tripod Pinch Percentile: 25% Left Tripod Pinch Average: 14.00 Left Tripod Pinch Percentile: 25% Sensation: [place] Monofil[facility] sensory testing. right 2.83 = WNL. left 2.83 = WNL Fine Motor: 9 hole peg test. right 23.44 =50%. left 24.33 =50% Balance: No noted loss of balance during assessment Bending: pt demo the ability to bend forward three times, ten times and ten times rapidly. pt can bend forward on a frquent ability Squatting: PT demo the ability to squat three times, ten times and ten times rapidly. pt can squat on a frequent ability Kneeling: pt demo the ability to kneel on his right knee three times without external support, pt demo the ability to kneel 10 times with external support and ten time rapidly with external support. pt can kneel on a frequent ability with external support. Reaching out/up: pt demo the ability to reach up/out three times and ten times ten times rapidly. pt states bilateral shoulder pain 3/10. pt can reach up out on frquent ability Walking: pt demo the ability to ambulate for 15 min. Pt ambulated with a reciprical gait pattern with no difficulty. pt can abulate on a frequent ability Standing: pt demo the ability to stand for 6 min shifting body weight. Pt can stand on a frequent ability with freedom to shift her body weight. Sitting: pt demo the ability to sit for 30 min with no apparant or expressed discomfort. pt can sit on a frequent ability. Climbing Stairs: 10 up without rail down with Floor Lift: Pt demo the ability to lift 70# maximally from this level with good ability. Knee Lift: Pt demo the ability to lift 70# maximally from this level with good ability. Waist Lift: Pt demo the ability to lift 70# maximally from this level with good ability. Shoulder Lift: Pt demo the ability to lift 45# maximally from this level with good ability. Overhead Lift: Pt demo the ability to lift 25# maximally from this level with good ability. Carrying: pt demo the ability to carry 45 # for 50 feet with good ability. Comments: pt demo good lift mechanics and good effort- pt reported bilateral shoulder pain 3/10
--- NOTE | 2019-12-01 14:39 | HP.OTDCSUM ---
It has been my pleasure to treat RONI ROYAL under orders from Dr. Rita Tyson MD, for the diagnosis of for a total of 1 visit(s). Please see the following information for a summary of their discharge status. pt was seen for FCE only If there are questions or concerns regarding this patient's occupational therapy, please fell free to call me at [phone]. Thank you for the referral of this patient. Sincerely, Karolina Veloz, OTR/L, CHT
== END 2019-11-26 19:00 | disposition home or self-care (01) ==
LOC: OT 08:54
PROVIDERS: PCP Family Medicine; Visit Provider Family Medicine
DX: C7A.090 Malignant carcinoid tumor of the bronchus and lung (principal)
CPT/HCPCS: 97750

== ENCOUNTER → 2020-03-10 16:43 | Outpatient (CLI) | payer BC, SELFPAY ==
[2019-09-09 07:45] VITALS: BMI 21.4
[2020-03-10 18:15] LABS: PSA,Total - Annual Screen 0.56 ng/mL (0.00-4.00)
== END ==
PROVIDERS: PCP Family Medicine; Visit Provider Family Medicine
DX: Z12.5 Encounter for screening for malignant neoplasm of prostate (principal)
CPT/HCPCS: 36415; 84153; G0103

== ENCOUNTER → 2020-04-26 14:38 | Outpatient (CLI) | payer BC, SELFPAY ==
[2020-04-18 13:59] VITALS: BMI 20.3
--- NOTE | 2020-04-26 14:42 | RAD_ITS ---
STUDY: X-RAY - LEFT KNEE REASON FOR EXAM: Male, 59 years old. left knee pain TECHNIQUE: 4 view(s) of the knee. COMPARISON: None. FINDINGS: Normal visualized distal femur. Normal visualized proximal tibia and fibula. Normal proximal tibiofibular articulation. Normal medial femorotibial compartment. Normal lateral femorotibial compartment. Normal patellofemoral articulation. The soft tissue structures are unremarkable. RAD/Knee 4 or More Views IMPRESSION: Normal x-ray examination of the knee. Electronically Signed: Van Victor MD at 15:30 EST Tel , Service support ,
== END ==
PROVIDERS: PCP Family Medicine; Referring Provider Family Medicine; Visit Provider Family Medicine
DX: M25.562 Pain in left knee (principal)
CPT/HCPCS: 73564

== ENCOUNTER 2020-05-18 17:30 | Outpatient (RCR) | payer BC, SELFPAY ==
[2020-04-18 13:59] VITALS: BMI 20.3
--- NOTE | 2020-05-15 17:12 | HP.PTEVAL ---
Patient's Visit Information RONI ROYAL is a 59 year old M referred to Physical Therapy by Dr. Cristobal Diaz MD with a diagnosis of L knee pain. Date of Evaluation: 05/15/20 Physical Therapist: Lilian Porter DPT - Visit Plan Frequency: 2x /Week Duration: 2 Weeks Plan: Focus on flexibilty, strength, and balance- Left Hamstring Strain - Subjective 3 weeks ago incidious onset, on posterior. more that he walked on it the worse it got. problem with same leg. a year ago- pain anterior. convulsion in sleep and fell off bed but leg was stuck under comforter. current c/o: calf muscle- felt like it over extended. Pain: no pain currently, but is uncomfortable,. worse:04/30 just from moving too much. best: nothing. 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 numbness/tingling: numbness in calf and posterior knee. sleep: does a little bit, able to get back to sleep, sleep on back. goal: find out whats happening. doesnt think he is as active for his age- he walks dog. has half a lung. stands alot and prefers to weight shift onto the L leg more. - Objective gait: bouncy with posterior pelvic tilt. stairs: UE use but able to perfrom recip, poor eccentric control with descending. HR/TR: decreased weight bear on L, poor eccentric control on L. SLS: single UE use for 10 seconds. palpation: painful on hamstring insertion site (medial and lateral) Not tender to ischial tuberosity. flexibilty: painful with SLR- Hamstring: severe Gastroc: moderate. Strength: ankle DF L 4/5 R 4+/5 PF L 4-/5 R 4+/5. knee flex L 4-/5 R 4+/5 ext L 4/5 R 4+5 Hip: 4+/5 throughout. ROM:WFL in LE - Goals Goal 1:: Patient will perform I HEP and progression Goal Time Frame: 4-6 Weeks Goal 2:: Patient will demonstrate improved strength to equal with R side (5/5) in order to perform I ADLs. Goal Time Frame: 4-6 Weeks Goal 3:: Patient will report no pain/discomfort for 1 week Goal Time Frame: 4-6 Weeks - Rehabilitation Potential Physical Therapy Diagnosis: Pt presents with decreased strength, balance, and flexibilty with signs and symtpoms consistent with L hamstring strain. Rehabilitation Potential: Good - Anticipated Interventions Patient/Client Instruction: Educate patient on: Plan of Care For the Purpose of:: To improve muscle performance and motor function Therapeutic Exercise to Include: Strength training, Endurance training, Balance training, Coordination, Agility training, Body mechanics, Postural training, Flexibilty training, Gait and locomotor training Cryotherapy (ice pack, ice massage): Yes Thermo therapy (hot pack): Yes Ultrasound (thermal/non thermal): Yes Thank you for the opportunity to evaluate your patient. For Medicare and Medicare HMO plans, please review the plan of care and approve it. It will need to be FAXED BACK to us at [phone] for Medicare purposes. For Medicare only, by signing this I certify the plan of care. Please let me know if there are questions or concerns regarding this plan of care. Physician Signature: Date:
--- NOTE | 2020-06-26 14:20 | HP.PT.NRP ---
RONI ROYAL was seen in my office for initial evaluation on 05/15/20. The following Plan of Care was established for this patient: Initial Frequency: 2x /Week Initial Duration: 2 Weeks Patient/Client Instruction: Educate patient on: Plan of Care For the Purpose of:: To improve muscle performance and motor function Therapeutic Exercise to Include: Strength training, Endurance training, Balance training, Coordination, Agility training, Body mechanics, Postural training, Flexibilty training, Gait and locomotor training Cryotherapy (ice pack, ice massage): Yes Thermo therapy (hot pack): Yes Ultrasound (thermal/non thermal): Yes This patient was last seen in our office . Pertinent comments regarding their Physical therapy will appear below: Patient has not attended PT in over 30 days- appropriate to be d/c and return to MD for further evaluation. At this point I will be discontinuing this patient from physical therapy. I would be happy to see this patient again in the future if found appropriate by the physician. Thank you! LAINA BushT
== END 2020-05-18 19:00 | disposition home or self-care (01) ==
LOC: PT 17:30
PROVIDERS: PCP Family Medicine; Referring Provider Family Medicine; Visit Provider Family Medicine
DX: M25.562 Pain in left knee (principal)
CPT/HCPCS: 97110; 97162

== ENCOUNTER → 2020-09-12 07:01 | Outpatient (CLI) | payer BC, SELFPAY ==
[2020-04-18 13:59] VITALS: BMI 20.3
--- NOTE | 2020-09-12 10:14 | PFTCOMP ---
COMPLETE PULMONARY FUNCTION TEST INTERPRETATION Brief HPI: Patient is a 60 year old male, currently under the care of Monica Au, who presents to [facility] for complete pulmonary function tests secondary to diagnosis of COPD. Respiratory therapist reports good effort and reproducible results. Interpretation: Forced expiration spirometry shows a very severe large airways obstructive ventilatory defect with an FEV1 of 34% predicted. There is a significant bronchodilator response in FVC and FEV1 by strict ATS criteria. Spirograms are of good quality and plateau [slowly, indicating slowly emptying areas of the lungs]. The respiratory flow volume loop shows [decreased expiratory flow rates at all lung volumes consistent with airway obstruction]. Lung volumes by body plethysmography show an elevated total lung capacity at 9.75 L, 171% predicted. [FRC and RV are elevated out of proportion.] Lung volume measurements are consistent with [hyperinflation and] air-trapping. Diffusion capacity by carbon monoxide is decreased at 53% predicted. The airway resistance is elevated. [Compared to previous pulmonary function tests from] 04/28/2018, there is been significant worsening and spirometric data and air trapping. Impression: Partially reversible very severe large airways obstructive ventilatory defect resulting in air trapping with hyperinflation and a symmetric reduction diffusing capacity, in a pattern consistent with COPD/asthma overlap. There has been significant worsening over the last 2 years.
== END ==
PROVIDERS: PCP Family Medicine; Referring Provider Nurse Practitioner Acute Care; Visit Provider Nurse Practitioner Acute Care
DX: J44.9 Chronic obstructive pulmonary disease, unspecified (principal)
CPT/HCPCS: 94060; 94726; 94729

== ENCOUNTER → 2020-10-06 12:31 | Outpatient (CLI) | payer BC, SELFPAY ==
[2020-09-15 06:06] VITALS: BMI 20.7
[2020-10-06 12:30] VITALS: PULSE 101; PULSE 102; PULSE 109; PULSE 86; PULSE 88; PULSE 90; PULSE 99; O2SAT 89; O2SAT 90; O2SAT 91; O2SAT 92; O2SAT 93
--- NOTE | 2020-10-07 10:45 | PCM.PSN.6M ---
PSN 6 Minute Walk Test 6 Minute Walk Test 6 Minute Walk Test: 6 Minute Walk Test PSN:6-Minute Walk Test Start: 10/06/20 12:59 Freq: Status: Active Protocol: RESP.6MINW Document 10/06/20 12:30 [facility] (Rec: 10/06/20 13:03 [facility] [id number]) 6 Minute Walk Test Date Performed 10/06/20 Time Performed 12:30 Height 5 ft 6 in Weight: 125 lb Weight in Pounds 125.[address]: Dr Rhoades Assistive device used: None Pre-test Oxygen Delivery Method Room Air Pulse Ox (%) 93 Pulse Rate (60-100 beats/min) 86 Dyspnea Av Scale (0-10) 0.5 Exertion Av Scale (6-20) 6 1st minute Oxygen Delivery Method Room Air Pulse Ox (%) 93 Pulse Rate (60-100 beats/min) 99 2nd minute Oxygen Delivery Method Room Air Pulse Ox (%) 90 Pulse Rate (60-100 beats/min) 109 H 3rd minute Oxygen Delivery Method Room Air Pulse Ox (%) 89 Pulse Rate (60-100 beats/min) 99 4th minute Oxygen Delivery Method Room Air Pulse Ox (%) 91 Pulse Rate (60-100 beats/min) 90 5th minute Oxygen Delivery Method Room Air Pulse Ox (%) 92 Pulse Rate (60-100 beats/min) 101 H 6th minute Oxygen Delivery Method Room Air Pulse Ox (%) 90 Pulse Rate (60-100 beats/min) 102 H Dyspnea Av Scale (0-10) 3 Exertion Av Scale (6-20) 12 Post-test Oxygen Delivery Method Room Air Pulse Ox (%) 93 Pulse Rate (60-100 beats/min) 88 Full Laps Walked 20 Partial Lap, Number of Tiles Walked 0 Total Distance Walked (ft) 1180 Interpretation Interpretation: The patient ambulated 1180 feet over the course of 6 minutes beginning on room air without assistive devices. Pretesting oxygen saturation was noted to be 93% on room air. With ambulation, the leonard oxygen saturation was 89%. This represents a significant exertional oxygen desaturation. Recommendations Recommendations: There is no indication for the use of supplemental oxygen at this time. However, close interval follow-up is recommended, given the degree of oxygen desaturation noted during this study.
== END ==
PROVIDERS: PCP Family Medicine; Referring Provider Internal Medicine Critical Care Medicine; Visit Provider Internal Medicine Critical Care Medicine
DX: J44.9 Chronic obstructive pulmonary disease, unspecified (principal)
CPT/HCPCS: 94618

== ENCOUNTER → 2021-02-09 | Outpatient (CLI) | payer BC, SELFPAY | END | disposition home or self-care (01) | PROVIDERS: PCP Family Medicine; Visit Provider Family Medicine | DX: Z20.822 Contact with and (suspected) exposure to COVID-19 (principal) | CPT/HCPCS: 87635; U0005; U0003 ==

== ENCOUNTER → 2022-08-08 | Outpatient (CLI) | payer BC, SELFPAY ==
[2022-08-08 13:45] VITALS: PULSE 106; PULSE 107; PULSE 111; PULSE 113; PULSE 119; PULSE 92; PULSE 99; O2SAT 90; O2SAT 91; O2SAT 92; O2SAT 94
--- NOTE | 2022-08-08 17:20 | RAD_ITS ---
STUDY: X-RAY - RIGHT SHOULDER REASON FOR EXAM: Male, 62 years old. Pain. TECHNIQUE: 4 view(s) of the shoulder. COMPARISON: Chest, July 08, 2016. FINDINGS: There is mild degenerative arthrosis of the glenohumeral articulation. There is degenerative arthrosis of the acromioclavicular joint without inferior osseous spur formation. Normal acromion. There is no acute fracture, dislocation or destructive osseous pathology. Normal humeral head and visualized proximal humerus. The soft tissue structures are unremarkable. Normal visualized pulmonary apex. RAD/Shoulder min 2 Views IMPRESSION: Mild arthrosis of the right shoulder. There is no major interval change from a chest film of July 08, 2016. Electronically Signed: Naun Francisco DO at 20:40 EDT ,
--- NOTE | 2022-08-09 10:46 | PCM.PSN.6M ---
PSN 6 Minute Walk Test 6 Minute Walk Test 6 Minute Walk Test: 6 Minute Walk Test PSN:6-Minute Walk Test Start: 08/08/22 14:14 Freq: Status: Active Protocol: RESP.6MINW Document 08/08/22 13:45 [facility] (Rec: 08/08/22 14:18 EW [id number]) 6 Minute Walk Test Date Performed 08/08/22 Time Performed 13:45 Height 5 ft 6 in Weight: 130 lb Weight in Pounds 130.[address]: Emmett Rhoades Assistive device used: None Pre-test Oxygen Delivery Method Room Air Pulse Ox (%) 92 Pulse Rate (60-100 beats/min) 92 Dyspnea Av Scale (0-10) 2 Exertion Av Scale (6-20) 6 1st minute Oxygen Delivery Method Room Air Pulse Ox (%) 92 Pulse Rate (60-100 beats/min) 106 H 2nd minute Oxygen Delivery Method Room Air Pulse Ox (%) 91 Pulse Rate (60-100 beats/min) 107 H 3rd minute Oxygen Delivery Method Room Air Pulse Ox (%) 90 Pulse Rate (60-100 beats/min) 119 H 4th minute Oxygen Delivery Method Room Air Pulse Ox (%) 90 Pulse Rate (60-100 beats/min) 113 H 5th minute Oxygen Delivery Method Room Air Pulse Ox (%) 92 Pulse Rate (60-100 beats/min) 111 H 6th minute Oxygen Delivery Method Room Air Pulse Ox (%) 91 Pulse Rate (60-100 beats/min) 113 H Post-test Oxygen Delivery Method Room Air Pulse Ox (%) 94 Pulse Rate (60-100 beats/min) 99 Dyspnea Av Scale (0-10) 2 Exertion Av Scale (6-20) 8 Full Laps Walked 19 Partial Lap, Number of Tiles Walked 37 Total Distance Walked (ft) 1158 Interpretation Interpretation: The patient ambulated 1158 feet over the course of 6 minutes beginning on room air without assistive devices. Pretesting oxygen saturation was noted to be 92% on room air. With ambulation, the leonard oxygen saturation was 90%. There was no significant exertional oxygen desaturation. Recommendations Recommendations: There is no indication for the use of supplemental oxygen at this time.
== END | disposition home or self-care (01) ==
PROVIDERS: PCP Family Medicine; Referring Provider Internal Medicine Critical Care Medicine; Visit Provider Internal Medicine Critical Care Medicine
DX: M25.511 Pain in right shoulder (principal); J44.9 Chronic obstructive pulmonary disease, unspecified
CPT/HCPCS: 73030; 94618

== ENCOUNTER → 2022-12-09 | Outpatient (CLI) | payer BC, SELFPAY ==
--- NOTE | 2022-12-09 16:20 | RAD_ITS ---
STUDY: X-RAY CHEST REASON FOR EXAM: Male, 62 years old. Shortness of breath. TECHNIQUE: Frontal and lateral views of the chest on 3 images. COMPARISON: Chest dated March 2018. FINDINGS: Stable substantial hyperinflation with hyperlucency and scattered healed parenchymal granulomatous calcifications. There is no demonstrated pleural abnormality. Normal size heart. Normal mediastinum and kimber. Stable clips projected just below the aortic arch. Normal visualized pulmonary arteries. Normal visualized aortic arch and descending thoracic aorta. Normal visualized thoracic spine. Normal visualized ribs, clavicles, and shoulders. No abnormality of the visualized soft tissue structures of the upper abdomen. RAD/Chest PA and Lateral IMPRESSION: Stable hyperinflation with hyperlucency. No active or acute cardiopulmonary disease. Electronically Signed: Jeremy Meier MD at 9:22 EDT ,
[2022-12-09 18:09] LABS: Absolute Lymphocyte Count 1.73 X10^3/uL (0.83-4.51); Absolute Neutrophil Count 5.2 X10^3/uL (2.0-7.7); Basophil# 0.06 X10^3/uL; Basophil% 0.8 % (0-1); Eosinophil# 0.13 X10^3/uL; Eosinophils% 1.6 % (0-5); Hematocrit 46.5 % (40-54); Hemoglobin 15.3 g/dL (13.0-16.5); Lymphocyte # 1.73 X10^3/ul (0.83-4.51); Lymphocyte % 21.8 % (19-41); Mean Corp Hgb Conc 32.9 g/dL (32-36); Mean Corpuscular Hgb 31.8 pg (27.0-32.0); Mean Corpuscular Volume 96.7 fL (80-94); Mean Platelet Vol. 10.4 fl (6.2-12.0); Monocyte# 0.82 X10^3/uL; Monocyte% 10.3 % (0-10); NRBC Flagged by Analyzer 0 % (0-5); Neutrophil # 5.18 X10^3/uL (2.7-7.7); Neutrophil % 65.1 % (47-70); Platelet Count 228 K/mm3 (150-450); RBC Distribution Width CV 13.2 % (11.6-14.6); RBC Distribution Width SD 47.1 fl (35.1-43.9); Red Blood Count 4.81 M/mm3 (4.6-6.2)
[2022-12-09 18:24] LABS: AST(SGOT) 20 U/L (15-37); Alanine Aminotransfer ALT/SGPT 29 U/L (16-61); Albumin, Serum 3.6 g/dL (3.2-5.0); Alkaline Phosphatase 84 U/L (45-117); Anion Gap 7 (5-15); BUN 18 mg/dL (7-18); BUN/Creat Ratio 22.6 RATIO (10-20); Chloride 106 mmol/L (98-107); EST Glomerular Filtration Rate 104 mL/min (>60); Est Glom Filt Rate - Afr Amer 126 mL/min (>60); Globulin 3.6 g/dL (2.2-4.2); Glucose 101 mg/dL (74-106); Potassium 4.2 mmol/L (3.5-5.1); Protein, Total 7.2 g/dL (6.4-8.2); Sodium Level 142 mmol/L (136-145)
== END | disposition home or self-care (01) ==
PROVIDERS: PCP Family Medicine; Referring Provider Family Medicine; Visit Provider Family Medicine
DX: R06.02 Shortness of breath (principal)
CPT/HCPCS: 36415; 71046; 80053; 85025

== ENCOUNTER → 2022-12-30 | Outpatient (CLI) | payer BC, SELFPAY | END | disposition home or self-care (01) | LOC: LABSPEC 15:17 | PROVIDERS: PCP Family Medicine; Referring Provider Family Medicine; Visit Provider Family Medicine | DX: J20.9 Acute bronchitis, unspecified (principal) | CPT/HCPCS: 87070; 87205 ==

== ENCOUNTER 2023-10-24 11:08 | Day surgery (SDC) | payer BC, SELFPAY ==
[2023-10-08 18:05] LABS: Absolute Lymphocyte Count 1.24 X10^3/uL (0.83-4.51); Absolute Neutrophil Count 6.3 X10^3/uL (2.0-7.7); Basophil# 0.03 X10^3/uL; Basophil% 0.4 % (0-1); Eosinophil# 0.01 X10^3/uL; Eosinophils% 0.1 % (0-5); Hematocrit 48.7 % (40-54); Hemoglobin 15.8 g/dL (13.0-16.5); Lymphocyte # 1.24 X10^3/ul (0.83-4.51); Lymphocyte % 14.8 % (19-41); Mean Corp Hgb Conc 32.4 g/dL (32-36); Mean Corpuscular Hgb 31.3 pg (27.0-32.0); Mean Corpuscular Volume 96.6 fL (80-94); Mean Platelet Vol. 10.8 fl (6.2-12.0); Monocyte# 0.74 X10^3/uL; Monocyte% 8.8 % (0-10); NRBC Flagged by Analyzer 0 % (0-5); Neutrophil % 75.3 % (47-70); Platelet Count 203 K/mm3 (150-450); RBC Distribution Width CV 14.3 % (11.6-14.6); Red Blood Count 5.04 M/mm3 (4.6-6.2); White Blood Count 8.4 K/mm3 (4.4-11.0)
[2023-10-08 18:22] LABS: Anion Gap 5 (5-15); BUN 17 mg/dL (7-18); Calcium,Total 9.4 mg/dL (8.5-10.1); Chloride 110 mmol/L (98-107); Creatinine, Serum 0.68 mg/dL (0.70-1.30); EST Glomerular Filtration Rate 124 mL/min (>60); Est Glom Filt Rate - Afr Amer 151 mL/min (>60); Glucose 104 mg/dL (74-106); Potassium 4.2 mmol/L (3.5-5.1); Sodium Level 143 mmol/L (136-145)
[2023-10-24] VITALS (12 sets, daily range): BP systolic 98–129; BP diastolic 54–80; PULSE 65–92; RESP 16–18; TEMP 36.3–36.7; O2SAT 92–97; BMI 22.6
--- NOTE | 2023-10-24 11:15 | RAD_ITS ---
INDICATION: PREOP EXAMINATION/TECHNIQUE: X-RAY - XR Chest 2 Views COMPARISON: Prior study dated: 12/09/2022 FINDINGS: LINES/DEVICES: None. LUNGS: The left lung remains hyperinflated. Postoperative changes in the left lung unchanged. No new infiltrate is seen. No pleural effusions. MEDIASTINUM AND CARDIOVASCULAR STRUCTURES: Surgical clips in the mediastinum. Normal cardiac silhouette. BONES AND SOFT TISSUES: Unremarkable. RAD/Chest PA and Lateral IMPRESSION: 1. No significant change. 2. No active pulmonary disease. Electronically Signed: Kendrick Aviles MD at 11:38 EDT ,
--- NOTE | 2023-10-24 11:52 | PCM.DC ---
Discharge Instructions Diet Discharge Diet: No restrictions Activity Discharge Activity: May Not Drive, May Shower (Please utilize cast bag covering when showering to keep dressings clean, dry, and intact to the right lower extremity) and Use Crutches (Please utilize crutches to remain nonweightbearing to the right lower extremity) Weight Bearing Status: No weight bearing (Please remain nonweightbearing to the right lower extremity with the assistance of crutches) Keep extremity elevated above heart level: Right Leg (Elevate right lower extremity at all times of rest for postoperative edema control) Dressing / Incision Call your doctor if you observe: Fever of 101 or Higher, Shortness of breath, Chest pain, Calf discomfort and Uncontrolled pain Change Dressing in: do not change dressing Remove Dressing in: leave in place till F/U (Leave dressing in place. Physician will change dressing at first postoperative appointment.) Cleanse incision/area with: Do not get Incision Wet and Keep Dressing Clean & Dry (Do not get foot wet. Please keep dressings clean, dry, and intact to the right lower extremity. Utilize cast bag covering when showering to assist in keeping dry.) Follow Up Care Please Follow Up With: Chuck Smith DPM When: Patient has first postoperative appointment with me in office early next week Test Results: Test results from this visit will be discussed in further detail at your follow-up appointment, if applicable. Discharge Plan Admission Attending Provider: Chuck Smith Primary Care Provider: Cristobal Diaz Instructions Print Language: Macedonian Discharge Orders/Prescriptions Prescriptions: New doxycycline hyclate 100 mg capsule 100 mg PO DAILY Qty: 10 0RF aspirin 325 mg capsule 325 mg PO DAILY Qty: 20 0RF oxycodone-acetaminophen 5-325 mg tablet 1 tab PO Q8H PRN (Reason: pain) 7 Days Qty: 32 0RF No Action tamsulosin 0.4 mg capsule 0.4 mg PO DAILY ascorbic acid (vitamin C) 500 mg capsule 2,000 mg PO DAILY albuterol sulfate [Ventolin HFA] 90 mcg/actuation HFA aerosol inhaler 2 puff INHALATION QHS Rx Instructions: administer with spacer Trelegy Ellipta 200-62.5-25 mcg blister with device 1 inh inhalation DAILY Qty: 60 11RF Referrals / Follow Up: Cristobal Diaz MD [Primary Care Provider] - Disposition Disposition (needs filled in before D/C Order can be placed): Home, Self Care
--- NOTE | 2023-10-24 12:00 | RAD_ITS ---
INDICATION: PAIN EXAMINATION/TECHNIQUE: X-RAY - RIGHT XR Foot 5 VIEWS COMPARISON: FINDINGS: Limited pre and postop images demonstrate osteotomy of the first metatarsus. Placement of a screw is noted through the first metatarsal head . Postsurgical changes in the adjacent soft tissue. RAD/Foot 2 Views IMPRESSION: Status post osteotomy of the first metatarsus. Electronically Signed: Gaudencio Singh DO at 16:54 EDT ,
[2023-10-24] MEDS: Lactated Ringers 1,000 ML 15 ML IV (12:09)
--- NOTE | 2023-10-24 12:21 | PCM.PRE.AN2 ---
ASA Classification* ASA Classification ASA Classification: 3 Assessment & Plan Anesthesia* Anesthesia Assessment Anesthesia Assessment: Discussed sedation and/or anesthesia options, risks, benefits, and alternatives with patient/parents/legal guardian/POA. Questions invited. The patient/parents/legal guardian/POA seems to understand and agrees to proceed with anesthesia plan. Reviewed the physical assessment, medical history, allergy history and patient home medications list prior to surgery/procedure/anesthetic and documented any changes. Performed airway and anesthesia risk assessments. Anesthesia Type Anesthesia Type: General History Source History Obtained from:: Patient and Chart Anesthesia Focused Assessment* Temperature: 98.1 F Pulse Rate: 73 Blood Pressure: 116/79 Respiratory Rate: 16 Pulse Ox: 97 Oxygen Delivery Method: Room Air Airway Assessment Mouth opens: >3 cm Mallampati Score: III Teeth Condition: Dentures (Dentures are out.) and Full Neck Range of motion (ROM): Full ROM Focused Labs Anesthesia Preop lab: CBC WBC 8.4 K/mm3 (4.4-11.0) 10/08/23 16:33 RBC 5.04 M/mm3 (4.6-6.2) 10/08/23 16:33 Hgb 15.8 g/dL (13.0-16.5) 10/08/23 16:33 Hct 48.7 % (40-54) 10/08/23 16:33 Plt Count 203 K/mm3 (150-450) 10/08/23 16:33 CHEMISTRY Potassium 4.2 mmol/L (3.5-5.1) 10/08/23 16:33 Sodium 143 mmol/L (136-145) 10/08/23 16:33 BUN 17 mg/dL (7-18) 10/08/23 16:33 Creatinine 0.68 mg/dL (0.70-1.30) L 10/08/23 16:33 Glucose 104 mg/dL (74-106) 10/08/23 16:33 COAG PT 12.4 SECONDS (11.7-14.9) 03/05/18 10:29 Pre-Assessment Diagnosis/Proposed Procedure Planned Operative Procedure(s): CHEVRON/PRICE BUNIONECTOMY OF THE RIGHT FOOT Anesthesia History Anesthesia History - weatherization director: Anesthesia History - weatherization director Hx Hospitalization No 10/14/23 08:35 Any Problems With Anesthesia No 10/14/23 08:35 Cholinesterase deficiency No 10/14/23 08:35 You/Your Family Experience No: ADOPTED 10/14/23 08:35 fever (hyperthermia) with Relationship Recent Exposure to Contagious No 10/24/23 11:43 Disease Does patient have nerve No 10/14/23 08:35 stimulator Patient instructed to have device shut off --Does patient have Pacemaker No 10/24/23 11:43 or ICD? When Was Last Pacemaker Check QUESTION #4 FULL TEXT: You/Your Family Experience fever (hyperthermia) with Anesthesia Last Oral Intake Last Oral intake: Last Oral Intake NPO since 00:00 10/24/23 11:43 Meds taken in AM with sips of Yes 10/24/23 11:43 water? Meds patient instructed to take am of surgery PONV PONV - weatherization director: PONV - weatherization director Female No 10/14/23 08:35 HX of Motion Sickness Yes 10/14/23 08:35 HX of N/V After Surgery No 10/14/23 08:35 Non-Smoker No 10/14/23 08:35 Duration of Surgery greater Yes 10/14/23 08:35 than 60 minutes Number of Risk Factors 2 10/14/23 08:35 PONV Score Moderate Risk 10/14/23 08:35 Height & Weight Height & Weight: Anesthesia: Height & Weight Height 5 ft 6 in 10/24/23 11:43 Weight: 63.7 kg 10/24/23 11:43 Body Mass Index (BMI) 22.6 10/24/23 11:43 Respiratory Assessment Respiratory Assessment - weatherization director: Respiratory Tract Infection Hx - weatherization director Hx Respiratory Tract Infection No 10/14/23 08:35 STOP Sleep Apnea STOP Sleep Apnea - weatherization director: STOP Sleep Apnea - weatherization director Hx Hypertension No 10/14/23 08:35 Hx Sleep Apnea No 10/14/23 08:35 CPAP BIPAP Do you snore loudly (louder Yes 10/14/23 08:35 than talking or can be heard Do you often feel tired/ No 10/14/23 08:35 fatigued/ sleepy during daytime? Has anyone observed you stop No 10/14/23 08:35 breathing during sleep? STOP Results Negative 10/14/23 08:35 QUESTION #5 FULL TEXT : Do you snore loudly (louder than talking or can be heard through closed doors)? 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 Specify any problems Hx of Preganancy in last 3 N/A 10/14/23 08:35 Months Nurse Filling Out Transfusion SFRANTZ 10/14/23 08:35 & Questions: Date: 10/14/23 10/14/23 08:35 Time: 08:40 10/14/23 08:35 Patient unable to answer at this time (ie. confused, unrespo /Reproduction History /Reproductive History - weatherization director: /Reproductive Hx- weatherization director Hx Now No 10/14/23 08:35 Gestational Age (in weeks): EDC: Hx Hx Para Hx Section SAB No 10/14/23 08:35 Active Medications Active Medications: Current Medications Generic Name Dose Route Start Last Admin Trade Name Freq PRN Reason Stop Dose Admin Cefazolin Sodium 2 gm/ Sodium 110 mls @ 150 mls/hr 10/24/23 13:00 Chloride IV 10/24/23 13:43 PREOP ONE Lactated Ringer's 1,000 mls @ 15 mls/hr 10/24/23 11:30 10/24/23 12:09 IV 15 mls/hr .Q48H LUKE Administration PFSH Medical History Loss of hearing Wears glasses Wears dentures Cancer History of Clostridium difficile infection Marijuana use Alcohol use History of steroid therapy Arthritis Prostate disease Easy bruising Restless legs Syncope Difficulty swallowing Former smoker Asthma Shortness of breath on exertion Chronic cough Nicotine dependence, cigarettes, uncomplicated COPD (chronic obstructive pulmonary disease) Umbilical hernia without obstruction or gangrene Tobacco dependence Abdominal pain Esophageal dysphagia Weight loss, non-intentional Lung cancer BPH (benign prostatic hyperplasia) Home Medications ?Medication ?Instructions ?Recorded ?Last Taken ?Type ascorbic acid (vitamin C) 500 mg 2,000 mg PO DAILY 02/03/18 Unknown History capsule tamsulosin 0.4 mg capsule 0.4 mg PO DAILY 02/03/18 Unknown History fluticasone fur. 200 mcg-umeclid 1 inh inhalation DAILY #60 ea 05/15/22 10/24/23 04:00 Rx 62.5 mcg-vilant 25 mcg inhalat.powder (Trelegy Ellipta) albuterol sulfate 90 mcg/actuation 2 puff inhalation QHS 10/14/23 10/24/23 04:00 History aerosol inhaler (Ventolin HFA) aspirin 325 mg capsule 325 mg PO DAILY #20 caps 10/24/23 Unknown Rx doxycycline hyclate 100 mg capsule 100 mg PO DAILY #10 caps 10/24/23 Unknown Rx oxycodone-acetaminophen 5 mg-325 1 tab PO Q8H PRN pain 7 days #32 10/24/23 Unknown Rx mg tablet tabs Allergy/AdvReac Type Severity Reaction Status Date / Time Iodinated Contrast Media Allergy Mild Rash Verified 10/24/23 11:41 (iodine contrast) Family History Unknown Adopted Surgical History Hx of umbilical hernia repair S/P lobectomy of lung Social History Smoking Status: Current some day smoker tobacco type: cigarettes alcohol intake: current alcohol intake frequency: 0-2 drinks per day substance use type: does not use Review of Systems (Anesthesia) ROS Narrative System reviewed and no additional complaints, except as documented.
[2023-10-24] MEDS: Ipratropium/Albuterol Sulfate 3 ML AMPUL.NEB INHALATION (12:42)
[2023-10-24] MEDS: Cefazolin 2 GM in 0.9% Normal Saline (100mL Bag) 100 ML IV (13:03)
[2023-10-24] MEDS: Bupivacaine Mpf 0.5% 30 ML VIAL (15:04)
[2023-10-24] MEDS: Lidocaine 1% (30 ml sdv) 30 ML Vial (15:04)
--- NOTE | 2023-10-24 15:42 | PCM.POST.ANE ---
Anesthesia: Postop Eval I Current Vital Signs Temperature: 97.9 F Pulse Rate: 79 Blood Pressure: 108/80 Respiratory Rate: 16 Pulse Ox: 95 Oxygen Delivery Method: Room Air Assessment Airway patent: Yes Spontaneous unlabored respirations: Yes Mental status: Awake and Calm nausea: No Vomiting: No Anesthesia Complication: No Fluid Hydration Crystalloid volume administer (ml): 1,500 Total IV fluid infused: 1,500 Progress Note Anesthesia document: Postop Eval 1 completed: Yes
--- NOTE | 2023-10-24 16:00 | RAD_ITS ---
INDICATION: Postop bunionectomy (PACU) EXAMINATION/TECHNIQUE: X-RAY - RIGHT XR Foot Min 3 Views 3 VIEWS COMPARISON: FINDINGS: Status post osteotomy of the first metatarsal bone with a screw in place at the surgical site . A cast is in place slightly limiting bony detail. RAD/Foot min 3 Views IMPRESSION: Status post osteotomy of the first metatarsus with postsurgical changes and cast placement. Electronically Signed: Gaudencio Singh DO at 17:40 EDT ,
--- NOTE | 2023-10-24 16:37 | OP.PCM_ITS ---
Problems Associated Problem List Diagnoses (1) Hallux valgus (acquired), right foot: (2) Pain in right foot: Report of Operation Date of Procedure: 10/24/23 Pre-Operative Diagnosis: 1. Hallux Abductovalgus deformity Right foot 2. Pain Right foot Post-Operative Diagnosis: 1. Hallux Abductovalgus deformity Right foot 2. Pain Right foot Surgery/Procedure Performed:: 1. Correction of Hallux Abductovalgus deformity with Pj/Chevron bunionectomy Right foot 2. Extensor Hallucis Longus (EHL) tendon lengthening Right foot 3. Application of AO splint right foot Description of Surgical Findings:: See operative note for finding Surgeon: Chuck Smith real estate photographer: Daisy Celaya DPM PGY-3 Type of Anesthesia: General and Local (20 cc one-to-one mixture 1% lidocaine plain and 0.5% Marcaine plain) Anesthesiologist: Jayy Maya Specimen's removed: Bone Right 1st metatarsal head Drains: None Estimated Blood Loss (mL): < 3mL Description of Procedure: HPI/indication: Patient is a 63-year-old male who first presented to office 09/09/2022 with complaint of painful bunion deformity. Patient states that he has tried previous conservative treatment of changing shoe gear, euqp-obw-tjxngop bunion sleeves, oemo-csb-yrbudql bunion shield, and jwaa-zha-xyepicv anti-inflammatories. Patient states that over 40 years ago he kicked a coffee table pretty hard with my foot flipping the table and states that the bunion slowly developed after this over the last several years. At time of presentation patient did not have bump pain or neuritis and did have s ome lateral deviation. Did have some tenderness about the sesamoids secondary to some arthritis. No tracking or track bound position was noted and the deformity did range best and corrected/aligned position with an IM 1?2 angle of 13 degrees. Patient does wear steel toe boots for work and would like to address the deformity prior to his residential. 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 He did return to the office in September 2023 to discuss undergoing the surgical procedure at this time. Updated radiographs were obtained with a slight increase in the IM angle however there was more pain to the deformity in shoe gear and while barefoot. Patient does now complain of bone pain and some neuritis along the medial aspect. Deformity remains unchanged and that there is no hypermobility noted or tracking or track bound type position and the deformity is still reducible with good range of motion in a corrected position. At this time patient does have time set up off of work to be able to have the corrective surgery done and would like to move forward with intervention as he has continued pain despite nonsurgical care. I discussed the surgical treatment of his hallux abductovalgus deformity of the right foot in great detail. We discussed the procedure and in great detail. Discussed all possible benefits versus risk and potential complications in detail. Discussed with the patient that the risks include but are not limited to the following: Pain, continued pain, complex regional pain syndrome, deformity, continued deformity, recurrence, overcorrection/under correction, numbness/neuritis, swelling, scarring, poor cosmetic result, bleeding, hardware failure, symptomatic hardware, infection, need for further surgery/procedures, fracture, nonunion/delayed union, malunion, nonhealing/delayed healing, dehiscence, blood clot, addiction to pain medication, stroke, allergic reaction, transfer lesions, postoperative arthritis, weakness, shoe gear problems, inability to walk, inability to wear shoe gear, floating toe, contracted toe, deviated toe, heart attack, loss of function, loss of limb, loss of life. Patient expressed understanding of these and was able to repeat these back. Typical postoperative course was reviewed in great detail. Patient expressed understanding of his treatment and the surgical process. Surgical consent was signed by the patient freely. No guarantees were given. No promises were made. Patient did obtain medical clearance by his PCP. All diagnostic data was reviewed prior to entering the OR. Patient was seen prior to entering the OR and surgical limb was signed. Patient was scheduled to undergo correction of hallux abductovalgus deformity with chevron/Pj bunionectomy of the right foot at [facility] [place] on 10/24/2023. Procedure: Under mild sedation patient was brought to the operating placed on the table in the supine position and secured to table with safety belt. Following induction of general anesthesia local anesthetic block was then performed about the patient's proximal first metatarsal consisting of 10 cc one-to-one mixture of 1% lidocaine plain and 0.5% Marcaine plain. A pneumatic ankle tourniquet was then placed about the patient's right ankle. A blanket hip bump was utilized and the foot was elevated via a blanket bump. The right foot was then scrubbed, prepped, and draped in usual aseptic manner. An Esmarch bandage was utilized to exsanguinate the right foot and the right foot was elevated and the pneumatic tourniquet was inflated to 250 mmHg. Next, fluoroscopic imaging was utilized to confirm bunion deformity in multiple views. A linear incision was made from the midshaft of the first metatarsal and extended distally to the base of the proximal phalanx utilizing a #15 blade. Incision was made medial to the EHL tendon. Incision was deepened via sharp and blunt dissection and care was taken to identify and retract all vital neurovascular structures. The EHL tendon was identified and retracted laterally and protected throughout the duration of this case. The first metatarsophalangeal joint capsule was incised linearly and an L-shaped capsulotomy was then utilized to access the medial portion of the first metatarsal head at the surgical field. Next, utilizing a sagittal saw the medial eminence was resected and passed from the operative field to the table in toto. A lateral release was then performed of the first metatarsophalangeal joint. Next, a K wire was inserted at the medial head of the first metatarsal and driven across the first metatarsal head parallel to the second metatarsal. Next, utilizing a sagittal saw an Pj/Chevron osteotomy was performed at the first metatarsal head. The capital fragment was then shifted laterally and temporarily fixated with a 0.062 K wire. At this time reduction of the deformity was confirmed in multiple fluoroscopic views. A second 0.062 K wire was then driven perpendicular to the opposing K wire and utilized for additional temporary fixation of the capital fragment. Following AO principles a 3.5 x 28 mm Arthrex headless compression screw was utilized for fixation of the osteotomy site. Excellent compression was noted across the osteotomy site with fixation in place and all temporary fixation was removed. Fixation was visualized in multiple fluoroscopic views and deemed to be excellent. At this time the sagittal saw was utilized to resect the remaining medial bone shelf, and bone was passed from the field to the operative table in toto. Next, there was noted to be a dorsal exostosis likely from his original injury when kicking the table many years ago, this was resected with a sagittal saw. At this time the foot was loaded to simulate weightbearing in the hallux did reduce with only slight lateral deviation and thus no [place] osteotomy was required. Site was then flushed with copious amounts of normal sterile saline. Next, a capsulorrhaphy was performed reducing some redundancy of the capsule and a repair of the capsular tissue at the first MPJ was performed via 4-0 Vicryl. Following repair of the capsule the digit was well aligned and deformity reduced confirming no need for Isabell osteotomy. It is also noted at this time that due to his longstanding bunion deformity with the EHL tendon is noted to be aiding in more dorsiflexion with the foot loaded and thus an EHL tendon lengthening was then performed in similar fashion to Andrews procedure. The digit was then plantarflexed to aid in lengthening of the tendon and upon reloading of the foot the digit was well aligned with the previous dorsiflexion deformity reduced. Sites were again flushed with copious amounts of normal sterile saline. Deep tissues were then closed utilizing 4-0 Vicryl. The subcuticular layer was then closed via 4-0 Monocryl. The skin was then reapproximated utilizing a 3-0 Prolene in simple interrupted fashion. At this time the pneumatic ankle tourniquet was deflated and a prompt hyperemic response was noted to the digits of the right foot. A postoperative block was then performed about the proximal base of the first metatarsal consisting of 10 cc one-to-one mixture of 1% lidocaine plain and 0.5% Marcaine plain. Final fluoroscopic images were obtained and reviewed prior to leaving. Incision sites were then dressed with Betadine soaked Adaptic, and the foot was dressed with 4 x 4 gauze, Kerlix x 2, Webril cast padding x 2, 4 inch Francisco wrap, 6 inch Francisco wrap. A well molded AO splint was then applied to the right lower extremity and anchored with a 4 inch Francisco and 6 inch Francisco wrap. The patient tolerated the procedure and anesthesia well and was transported the PACU vital signs stable vascular status intact to the right foot. Postoperative imaging was obtained in PACU and reviewed prior to leaving. Discussed with patient and family his discharge instructions stating to keep dressings clean, dry, and intact to the right lower extremity. To utilize shower chair or seated while showering with cast bag covering to assist in keeping dressings dry and clean. To elevate the right lower extremity at all times of rest for postoperative edema control. Discussed taking all postoperative medications as instructed. Discussed that he is to remain nonweightbearing to the right lower extremity at all times with the assistance of crutches/knee scooter. These instructions were outlined to the patient and family prior to surgical intervention and they were reminded again following the surgical procedure with discharge instructions printed. Patient has first postoperative appointment with me in office early next week. Grafts/Implants Used: Arthrex 3.5mm x 28mm FT compression scew Complications None Admit VTE Documentation VTE Present on Admission: No VTE Mechan Device Prophylaxis: SCD's VTE Pharm Prophylaxis ordered?: Yes
--- NOTE | 2023-10-25 11:38 | POSTOPAN2_ITS ---
Anesthesia Postop Eval I Sum Postop Eval Completion status Anesthesia document: Postop Eval 1 completed: Yes Anesthesia Postop Eval I Summary Anesthesia Postop Eval I Summary: Anesthesia Postop Eval I: Assessment Summary Airway patent Yes 10/24/23 15:43 PLACE CHANGE ROOF BOLTER.MDOT Spontaneous unlabored Yes 10/24/23 15:43 PLACE CHANGE ROOF BOLTER.MDOT respirations Mental status Awake,Calm 10/24/23 15:43 PLACE CHANGE ROOF BOLTER.MDOT nausea No 10/24/23 15:43 PLACE CHANGE ROOF BOLTER.MDOT Vomiting No 10/24/23 15:43 PLACE CHANGE ROOF BOLTER.MDOT Anesthesia Postop Eval I: Fluid Summary Crystalloid volume administer 1,500 10/24/23 15:43 PL[address] CHANGE ROOF BOLTER.MDOT (ml) Colloids volume administered ( ml) Blood Product volume administered (ml) Total IV fluid infused 1,500 10/24/23 15:43 PL[address] CHANGE ROOF BOLTER.MDOT Anesthesia Postop Eval I: Summary Notes Anesthesia Complication No 10/24/23 15:43 PLACE CHANGE ROOF BOLTER.MDOT Anesthesia Complication Comment: Post-operative progress note Anesthesia: Postop Eval II Evaluation Mental status: Awake and Calm Pain Level: 1 nausea: No Vomiting: No Complications Anesthesia Complication: No
--- NOTE | 2023-10-25 11:38 | PCM.POSTANE2 ---
Anesthesia Postop Eval I Sum Postop Eval Completion status Anesthesia document: Postop Eval 1 completed: Yes Anesthesia Postop Eval I Summary Anesthesia Postop Eval I Summary: Anesthesia Postop Eval I: Assessment Summary Airway patent Yes 10/24/23 15:43 CAR [email or web address] Spontaneous unlabored Yes 10/24/23 15:43 CAR WORKER.MDOT respirations Mental status Awake,Calm 10/24/23 15:43 CAR WORKER.MDOT nausea No 10/24/23 15:43 CAR WORKER.MDOT Vomiting No 10/24/23 15:43 CAR [email or web address].MDOT Anesthesia Postop Eval I: Fluid Summary Crystalloid volume administer 1,500 10/24/23 15:43 CAR WORKER.MDOT (ml) Colloids volume administered ( ml) Blood Product volume administered (ml) Total IV fluid infused 1,500 10/24/23 15:43 CAR WORKER.MDOT Anesthesia Postop Eval I: Summary Notes Anesthesia Complication No 10/24/23 15:43 CAR WORKER.MDOT Anesthesia Complication Comment: Post-operative progress note Anesthesia: Postop Eval II Evaluation Mental status: Awake and Calm Pain Level: 1 nausea: No Vomiting: No Complications Anesthesia Complication: No
== END 2023-10-24 17:12 | disposition home or self-care (01) ==
LOC: SDC 11:12 → AC 11:13
PROVIDERS: PCP Family Medicine; Referring Provider Student in an Organized Health Care Education/Training Program; Visit Provider Student in an Organized Health Care Education/Training Program
PROC: (CPT 28292; principal; 2023-10-24 12:45)
DX: M20.11 Hallux valgus (acquired), right foot (principal); J44.9 Chronic obstructive pulmonary disease, unspecified; F17.210 Nicotine dependence, cigarettes, uncomplicated; Z79.51 Long term (current) use of inhaled steroids; Z79.899 Other long term (current) drug therapy
CPT/HCPCS: 28292; 28306; 36415; 71046; 73620; 73630; 76000; 80048; 85025; 94640; C1713; J7120; J2405

== ENCOUNTER 2024-01-27 16:00 | Outpatient (RCR) | payer BC, SELFPAY ==
--- NOTE | 2024-01-15 12:52 | HP.PTEVAL_ITS ---
Patient's Visit Information Visit Information Visit Information: RONI ROYAL is a 63 year old M referred to Physical Therapy by Dr. Chuck Smith DPM with a diagnosis of HALLUX ABDUCTOVALGUS DEFORMITY OF R FOOT. S/P SX 10/24/23. Date of Evaluation: 01/15/24 Physical Therapist: Chanda Jones PT, Cert MDT Visit Plan Frequency: 2x /Week Duration: 5 WKS Plan: 1. MANUAL THERAPY TO IMPROVE TOE (ESPECIALLY 1ST MTP) ROM. 2. EDEMA CONTROL. 3. SCAR MOBILIZATION. 4. R FOOT ROM/STRETCHING/STRENGTHENING TO AID IN RTW. 5. GAIT TRAINING/STAIR TRAINING. BALANCE AND PROPRIOCEPTIVE TRAINING. Subjective Subjective: DX: HALLUX ABDUCTOVALGUS DEFORMITY OF R FOOT. S/P CHEVRON/PRICE BUNIONECTOMY 10/24/23. Work/Leisure: [employer] FOR [employer]. WORKED UP UNTIL THE TIME OF SURGERY 10/24/23 AND HAS BEEN OFF WORK SINCE SURGERY. TENTATIVE RTW DATE IS 01/26/24. Present symptoms: DIFFICULTY WALKING. DIFFICULTY BENDING TOE DOWN. PAIN IN THE FIRST JOINT OF THE BIG TOE. TROUBLE KEEPING THE BIG TOE OFF OF THE SECOND TOE. R FOOT SWELLING. PATIENT DENIES NUMBNESS AND TINGLING. PATIENT DENIES TROUBLE WITH HIS OTHER TOES OR ANKLE. Present since: YEARS PRIOR TO SURGERY. Pain Scale: WORST 3/10, LEAST 0/10 - BRIEF EPISODES OF 4/5 PAIN THAT ARE FLEETING IF STEPS WRONG. Currently: 0/10 Is it getting better, worse or staying the same: GETTING BETTER Commenced as a result of: BUNION AND ARTHRITIS Worse: WALKING DOWNHILL, PROLONGED WALKING, WALKING ON UNEVEN GROUND, STEPPING ON A STONE Better: RESTING AND GETTING OFF THE FOOT, WALKING ON THE SIDE OF FOOT, ELEVATING FOOT Disturbed sleep: YES Previous history/Previous treatment: NO PRIOR SURGERY OR TREATMENT Treatment this episode: R FOOT SX 10/24/23 Gait: INDEP GAIT WITHOUT AD X 10 MINUTES MAX BEFORE PAIN STOPS HIM. OTHER: PATIENT REPORTS HE IS CONCERNED ABOUT BEING ABLE TO TOLERATED GOING BACK TO WORK. HE STATES HE HAS TO BE ABLE TO CARRY A MINIMUM OF 15 LBS IN EA HAND (MAX 30 EA) AND GO UP A MIN OF 15 STEPS (MAX 115 STEPS) AND WALK A MIN DIST OF 60 YARDS AT A TIME (MAX 150 YARDS). Objective Objective: THIS PATIENT AMBULATES INDEP'LY INTO PHYSICAL THERAPY WITH A REGULAR SHOE WITHOUT ANY AD'S WITH A MILD LIMP ON THE R LE WITH DECREASED TOE OFF PHASE OF GAIT. HE HAS DECREASED LIGHT TOUCH SENSATION OF THE R MEDIAL FOOT IN THE GREAT TOE REGION DORSALLY. THE INCISIOIN IS WELL HEALED AND THERE IS DECREASED SCAR MOBILITY. NO SIGNS OF INFECTION. THE FIRST TOE SLIGHTLY OVERLIES THE 2ND TO E. HE IS WEARING SHOE INSERTS THAT HE REPORTS HE RECEIVED FROM THE FOOT SURGEON. HE HAS SWELLING, DECREASED ROM AND STRENGTH OF HIS TOES ESPECIALLY IN HIS 1ST MTPJ. HE IS INDEP WITH TRANSFERS SIT TO STAND AND REVERSE WITHOUT UE ASSIST. TUG TIME IS 9.10 SEC. JONAS ANKLE ROM IS 7-0-39 DEG. JONAS ANKLE STRENGTH IS 5/5. CIRCUMFERENCE MEASUREMENTS: MT HEADS - R 24 CM, L 21 CM. MALLEOLI - R 24 CM, L 24 CM. ACTIVE TOE 1ST TOE EXT - R 10 DEG, L 50 DEG. PATIENT IS UNABLE TO ACTIVELY FLEX R GREAT TOE. PATIENT HAS GROSSLY 20% ACTIVE ROM AND STRENGTH OF R DIGITS 2 THROUGH 5 COMPARED TO LEFT DIGITS 2 THROUGH 5. R 2-5 TOE FLEX STRENGTH IS GROSSLY 2/5 BUT R 2-5 EXT STRENGTH IS 1-/5. STEPS: PATIENT IS ABLE TO GO UP STEPS RECIP WITH ONE WITH MIN DEVIATION. HE DESCENDS STEPS RECIP WITH ONE HR WITH MODERATE DEVIATION. Balance/Special Test Scores Lower Extremity Functional Score: 28 Goals Goal 1:: DECREASE EDEMA OF R FOOT Goal Time Frame: 4-6 Weeks Goal 2:: IMPROVE R TOE MOBILITY Goal Time Frame: 4-6 Weeks Goal 3:: IMPROVE R TOE STRENGTH Goal Time Frame: 4-6 Weeks Goal 4:: NORMALIZE GAIT AND BALANCE ON LEVEL SURFACES AND UP AND DOWN STEPS Goal Time Frame: 4-6 Weeks Goal 5:: PATIENT WILL REPORT AT LEAST 50% DECREASED PAIN TO EASE WORK AND ADL FUNCTION Goal Time Frame: 4-6 Weeks Goal 6:: PATIENT WILL BE ABLE TO SAFELY RETURN TO WORK. Goal Time Frame: 4-6 Weeks Rehabilitation Potential Physical Therapy Diagnosis: DIFFICULTY WITH GAIT, R TOE STIFFNESS, WEAKNESS, SWELLING AND PAIN. Rehabilitation Potential: Good Anticipated Interventions Patient/Client Instruction: Educate patient on: Condition, Plan of Care and Risk Factors For the Purpose of:: To improve self management Therapeutic Exercise to Include: Strength training, Balance training, Flexibilty training, Gait and locomotor training, Neuromotor development, Passive ROM and Active ROM For the Purpose of:: To decrease pain, To decrease swelling/inflammation, To increase ROM, To improve nutrient delivery to tissue, To improve muscle performance and motor function, To improve ability to perform ADL's, To increase tolerance to activity/condition/position, To improve ability of physical actions for home/community/work/leisure, To improve gait and locomotor functions, To decrease soft tissue restriction, To increase flexibility/ROM, To improve balance and To improve safety with gait Manual Therapy Techniques to Include: Scar massage, Mobilization, Passive ROM and Soft tissue mobilization For the Purpose of:: To decrease pain, To decrease swelling/inflammation, To increase ROM, To improve nutrient delivery to tissue, To improve muscle performance and motor function, To increase tolerance to activity/condition/position, To improve ability of physical actions for home/community/work/leisure, To improve health of tissue, To decrease soft tissue restriction and To increase flexibility/ROM Cryotherapy (ice pack, ice massage): Yes Vasopneumatic device: Yes For the Purpose of:: To decrease pain and To decrease swelling/inflammation Text: Thank you for the opportunity to evaluate your patient. For Medicare and Medicare HMO plans, please review the plan of care and approve it. It will need to be FAXED BACK to us at [phone] for Medicare purposes. For Medicare only, by signing this I certify the plan of care. Please let me know if there are questions or concerns regarding this plan of care. Physician Signature: Date:
--- NOTE | 2024-04-27 10:48 | HP.PT.NRP ---
Patient Information Patient Information: RONI ROYAL was seen in my office for initial evaluation on 01/15/24. The following Plan of Care was established for this patient: POC Established Initial Frequency: 2x /Week Initial Duration: 5 WKS Anticipated Interventions Patient/Client Instruction: Educate patient on: Condition, Plan of Care and Risk Factors For the Purpose of:: To improve self management Therapeutic Exercise to Include: Strength training, Balance training, Flexibilty training, Gait and locomotor training, Neuromotor development, Passive ROM and Active ROM For the Purpose of:: To decrease pain, To decrease swelling/inflammation, To increase ROM, To improve nutrient delivery to tissue, To improve muscle performance and motor function, To improve ability to perform ADL's, To increase tolerance to activity/condition/position, To improve ability of physical actions for home/community/work/leisure, To improve gait and locomotor functions, To decrease soft tissue restriction, To increase flexibility/ROM, To improve balance and To improve safety with gait Manual Therapy Techniques to Include: Scar massage, Mobilization, Passive ROM and Soft tissue mobilization For the Purpose of:: To decrease pain, To decrease swelling/inflammation, To increase ROM, To improve nutrient delivery to tissue, To improve muscle performance and motor function, To increase tolerance to activity/condition/position, To improve ability of physical actions for home/community/work/leisure, To improve health of tissue, To decrease soft tissue restriction and To increase flexibility/ROM Cryotherapy (ice pack, ice massage): Yes Vasopneumatic device: Yes For the Purpose of:: To decrease pain and To decrease swelling/inflammation Last Seen Last Seen: This patient was last seen in our office 01/27/24. Pertinent comments regarding their Physical therapy will appear below: It has been my pleasure to see this patient for a total of 5 visits. This patient has not returned to Physical Therapy for more visits and is appropriate to return to MD for further follow-up as needed. At this point I will be discontinuing this patient from physical therapy. I would be happy to see this patient again in the future if found appropriate by the physician. Thank you! Chanda Jones, PT, Cert MDT Balance/Gait/Functional tests Balance/Special Test Scores Lower Extremity Functional Score: 28
== END 2024-01-27 19:00 | disposition home or self-care (01) ==
LOC: PT 16:00
PROVIDERS: PCP Family Medicine; Referring Provider Student in an Organized Health Care Education/Training Program; Visit Provider Student in an Organized Health Care Education/Training Program
DX: M20.11 Hallux valgus (acquired), right foot (principal)
CPT/HCPCS: 97110; 97140; 97162; 97530